=== PATIENT | male | born 1950 | race Caucasian/White ===

== ENCOUNTER 2024-02-09 14:31 | Emergency (ER) | payer OTHER, SELFPAY ==
[2024-02-09 14:36] VITALS: BP 150/86
[2024-02-09 15:02] LABS: % Basophils 0.5 % (0-2); % Eosinophils 0.1 % (0-6); % Immature Granulocytes 0.5 % (0-0.5); % Lymphocytes 6.6 % (20.5-51.1); % Monocytes 4.7 % (1.7-9.3); % Neutrophils 87.6 % (42.2-75.2); Absolute Basophils 0.1 10^3/uL (0-0.2); Absolute Immature Granulocytes 0.1 10^3/uL (0-0.05); Absolute Lymphocytes 1.1 10^3/uL (1.2-3.4); Absolute Monocytes 0.7 10^3/uL (0.1-0.6); Absolute Neutrophils 13.9 10^3/uL (1.4-6.5); Hematocrit 40.7 % (39.0-52.0); Hemoglobin 13.3 g/dL (13.0-18.0); Mean Corp Hgb Conc. 32.7 g/dL (33.0-37.0); Mean Corpuscular Hgb 30.1 pg (27.0-31.0); Mean Corpuscular Volume 92.1 fL (80.0-94.0); Mean Platelet Volume 9.6 fL (7.4-10.4); Nucleated Red Blood Cells % 0 % (-); Platelet Count 420 10^3/uL (130-400); Red Blood Cell Count 4.42 10^6/uL (4.70-6.10); Red Cell Dist. Width 12.4 % (11.5-14.5); White Blood Cell Count 15.9 10^3/uL (4.8-10.8)
[2024-02-09 15:13] LABS: Urine Albumin Negative (Neg - Trace); Urine Bilirubin Negative (Negative); Urine Character Clear (Clear); Urine Color Yellow; Urine Glucose Negative (Negative); Urine Ketone Trace (Negative); Urine Leukocyte 1+ (Negative); Urine Nitrite Negative (Negative); Urine Occult Blood 1+ (Negative); Urine Urobilinogen Negative (Neg - 1+)
[2024-02-09 15:14] LABS: ALT (SGPT) 23 U/L (0-50); AST (SGOT) 28 U/L (17-59); Alkaline Phosphatase 94 U/L (38-126); Blood Urea Nitrogen 21 mg/dl (9-20); Calcium 9.4 mg/dl (8.4-10.2); Carbon Dioxide 24 mmol/L (22-30); Chloride 103 mmol/L (98-107); Glucose 143 mg/dl (70-99); Potassium 4.6 mmol/L (3.5-5.1); Sodium 137 mmol/L (135-145); Total Bilirubin 0.5 mg/dl (0.2-1.3); Total Protein 7.4 g/dl (6.3-8.2); eGFR > 60.00
[2024-02-09 15:32] VITALS: BMI 26.6
[2024-02-09] MEDS: TORADOL 15 MG IV (15:33)
[2024-02-09 17:26] VITALS: BP 137/82
--- NOTE | 2024-02-09 18:25 | ED.GENMED ---
History of Present Illness
General
Chief Complaint: Flank Pain
Source: patient
Exam Limitations: none
Time Seen by Provider: 02/09/24 15:08
Nursing documentation reviewed up to this point in time: agreed with
Travel History
Have you had any contact with someone who has COVID-19?: No
Do you have any symptoms of coronavirus? Fever > 100 degrees, chills, cough, shortness of breath, sore throat, loss of taste or smell, muscle aches, or headache?: No
History of Present Illness
History of Present Illness:
Patient to ED with complaint of left flank pain. Symptoms started today. History of kidney stones [place] episode approx 4 yrs ago. To ED accompanied by spouse for kobi.
Past History
Past History
ED Past Medical History: Other (kisney stones)
Social History
Tobacco: Non-smoker
Review of Systems
Review of Systems
Allergies reviewed?: Yes
All Other Systems: ROS reviewed and negative except as documented in HPI and ROS
Constitutional: Reports no symptoms
EENT: Reports no symptoms
Respiratory: Reports no symptoms
Cardiac: Reports no symptoms
ABD/GI: Reports no symptoms
: Reports flank pain
Musculoskeletal: Reports no symptoms
Skin: Reports no symptoms
Neurological: Reports no symptoms
Psychiatric: Reports no symptoms
Phy Exam
General Physical Exam
General Presentation: well appearing and mild distress
General age: appears stated age
General Skin: warm and dry
General Habitus: normal
General Mental: alert
Gastrointestinal Exam
Gastrointestinal Exam: normal bowel sounds, non tender, soft, no organomegaly and non distended
Musculoskeletal Exam
Musculoskeletal Exam: full ROM and neuro vasc intact
Skin Exam
Skin Exam: normal color, warm/dry and no rash
Psychiatric Exam
Psychiatric Exam: normal mood/affect
Course
Orders/Labs/Results
Orders:
Orders
02/09/24 14:48
Complete Blood Count/With Diff Urgent
Comprehensive Metabolic Panel Urgent
02/09/24 14:52
Urinalysis Reflex To Culture Urgent
Date Specimen was Collected: 02/09/24
Time Specimen was Collected: 14:38
Urine Microscopic Reflex Cult Urgent
Urine Culture Urgent
STEFANY Source: U
Specimen Description:
Date Specimen was Collected: 02/09/24
Time Specimen was Collected: 14:38
02/09/24 15:11
CT Abd/pel Without Iv Or Oral Urgent
Comment:
Reason For Exam: flank pain
02/09/24 15:15
Ketorolac [Toradol] 15 mg IV NOW STA
Abnormal Lab Results
02/09/24 02/09/24
14:48 14:52
WBC 15.9 H 10^3/uL
(4.8-10.8)
RBC 4.42 L 10^6/uL
(4.70-6.10)
MCHC 32.7 L g/dL
(33.0-37.0)
Plt Count 420 H 10^3/uL
(130-400)
Abs Immat Gran (auto) 0.1 H 10^3/uL
(0-0.05)
Absolute Neuts (auto) 13.9 H 10^3/uL
(1.4-6.5)
Absolute Lymphs (auto) 1.1 L 10^3/uL
(1.2-3.4)
Absolute Monos (auto) 0.7 H 10^3/uL
(0.1-0.6)
Neutrophils % 87.6 H %
(42.2-75.2)
Lymphocytes % 6.6 L %
(20.5-51.1)
BUN 21 H mg/dl
(9-20)
Glucose 143 H mg/dl
(70-99)
Urine Ketones Trace A
(Negative)
Ur Occult Blood Reflex 1+ A
(Negative)
Leukocyte Esterase Rfl 1+ A
(Negative)
Urine RBC 3-6 A /HPF
(0-2)
02/09/24 14:48
02/09/24 14:48
Vital Signs
Initial and Last Documented VS:
Initial Vital Signs
Temp Pulse Resp BP Pulse Ox
97.7 F 66 16 150/86 100
02/09/24 14:36 02/09/24 14:36 02/09/24 14:36 02/09/24 14:36 02/09/24 14:36
Last Documented Vital Signs
Temp Pulse Resp BP Pulse Ox
97.7 F 73 14 137/82 98
02/09/24 14:36 02/09/24 17:26 02/09/24 17:26 02/09/24 17:26 02/09/24 17:26
*Radiology
Radiology exam reviewed: radiology read reviewed
*Pulse Oximetry
Patient hypoxic: no
*Critical Care Note
Total Time (30-74mins, 75-104mins- exclusive of procedures): Not Applicable
Update Note
Update Note:
Patient now pain free. Ct report of stone passing into bladder. Patient is discharged home and will strain urine, followup with urology
ED Attending Note
-
Portions of this chart may have been created with voice recognition software.� Occasional wrong word or��sound alike� substitutions may have occurred due to the inherent limitations of voice recognition software.
Discharge Plan
Departure
Patient Disposition: Home (Routine Discharge)
Date of Disposition: 02/09/24
Time of Disposition: 17:33
Patient with high blood pressure during this ER visit?: No
Condition: Good
Covid-19: Not Applicable
Discharge Problem:
Kidney stone
Instructions: Kidney Stones (DC), Flank Pain (DC)
Prescriptions:
No Action
atenolol 50 MG tablet
50 mg PO DAILY
Referrals:
Anurag Solis MD [Active] - Next open appointment
Ryanne Victoria MD [Family Provider] -
Interventions
Interventions:
*Risk Screen - Suicide Last Done: 02/09/24 15:32
*General Assessment Last Done: 02/09/24 15:32
*Neglect/Abuse Screening Last Done: 02/09/24 15:32
*ED COVID-19 Vaccine History Last Done: 02/09/24 15:32
*Nursing Disposition Last Done: 02/09/24 18:09
QG-Oihien-Vxuwhmqwdi Assessment Last Done: 02/09/24 15:32
ED-Male Genitourinary Assessment Last Done: 02/09/24 15:32
Discharge Date and Time
Discharge Date/Time: 02/09/24 18:10
Print Language: BURKINAN
== END 2024-02-09 18:10 | disposition home or self-care (01) ==
LOC: EMR 14:31
PROVIDERS: Emergency Medicine; EMERGENCY PHYSICIAN Emergency Medicine; FAMILY PHYSICIAN Family Medicine
DX: N13.2 Hydronephrosis with renal and ureteral calculous obstruction (principal)
CPT/HCPCS: 99284; 96374; 74176; 80053; 81003; 81015; 85025; 87086

== ENCOUNTER → 2024-06-23 09:48 | Outpatient (REF) | payer OTHER, SELFPAY | LOC: HWRAD 09:48 | PROVIDERS: ATTENDING PHYSICIAN Family Medicine | DX: M89.371 Hypertrophy of bone, right ankle and foot (principal); M89.372 Hypertrophy of bone, left ankle and foot | CPT/HCPCS: 73630 ==

== ENCOUNTER 2024-06-25 22:40 | Inpatient (IN) | payer OTHER, SELFPAY ==
[2024-06-25] VITALS (8 sets, daily range): BP systolic 133–144; BP diastolic 68–89; BMI 27.4
[2024-06-25 19:20] LABS: % Basophils 0.4 % (0-2); % Immature Granulocytes 0.4 % (0-0.5); % Lymphocytes 5.7 % (20.5-51.1); % Monocytes 4.4 % (1.7-9.3); % Neutrophils 89.1 % (42.2-75.2); Absolute Basophils 0.1 10^3/uL (0-0.2); Absolute Immature Granulocytes 0.1 10^3/uL (0-0.05); Absolute Lymphocytes 0.7 10^3/uL (1.2-3.4); Absolute Monocytes 0.6 10^3/uL (0.1-0.6); Absolute Neutrophils 11.3 10^3/uL (1.4-6.5); Hematocrit 42.6 % (39.0-52.0); Hemoglobin 14.7 g/dL (13.0-18.0); Mean Corp Hgb Conc. 34.5 g/dL (33.0-37.0); Mean Corpuscular Hgb 30.1 pg (27.0-31.0); Mean Corpuscular Volume 87.3 fL (80.0-94.0); Mean Platelet Volume 9.6 fL (7.4-10.4); Nucleated Red Blood Cells % 0 % (-); Platelet Count 246 10^3/uL (130-400); Red Blood Cell Count 4.88 10^6/uL (4.70-6.10); White Blood Cell Count 12.7 10^3/uL (4.8-10.8)
--- NOTE | 2024-06-25 19:20 | ED.GENMED ---
History of Present Illness
General
Chief Complaint: Abdominal Pain
Source: patient
Exam Limitations: none
Time Seen by Provider: 06/25/24 19:02
History of Present Illness
History of Present Illness:
Patient complaining of left-sided flank pain started earlier today. Minimal at this time. No back pain no groin pain no urinary symptoms. History of kidney stones. Feels similar. Last kidney stone was earlier in the year and he passed it on his
own. His previous kidney stones have had to be removed surgically/lithotripsy.
Past History
Past History
ED Past Medical History: HTN and Other (kidney stones)
ED Past Surgical History: Urological
Social History
Tobacco: Former smoker
Review of Systems
Review of Systems
All Other Systems: Not applicable
Constitutional: Denies fever or chills
Phy Exam
Physical Exam
Physical Exam:
GENERAL: Alert and oriented in no apparent distress
EYE: Orbits normal.
NECK: Supple
CARDIAC: Regular rate and rhythm without any obvious murmurs.
LUNGS: Clear breath sounds,normal
ABDOMEN: Soft, without focal tenderness or distention. No CVA tenderness
NEUROLOGICAL: Alert and oriented , grossly non-focal
SKIN: Warm and dry
PSYCH: Normal and appropriate interaction.
Course
Orders/Labs/Results
Orders:
Orders
06/25/24 Breakfast
Regular
At Your Request: Full Participation
06/25/24 19:08
CT Abd/pel Without Iv Or Oral Urgent
Comment:
Reason For Exam: Left flank pain
IV Insert/Care/Rem.- Treatment PRN
Pulse Ox/cont/shift [RESP] Stat
Quantity: 1
06/25/24 19:14
Complete Blood Count/With Diff Urgent
Comprehensive Metabolic Panel Urgent
Lipase Urgent
Urinalysis Reflex To Culture Urgent
Date Specimen was Collected: 06/25/24
Time Specimen was Collected: 19:12
Urine Microscopic Reflex Cult Urgent
Urine Culture Urgent
STEFANY Source: U
Specimen Description:
Date Specimen was Collected: 06/25/24
Time Specimen was Collected: 19:12
06/25/24 21:26
Cefepime HCl [Maxipime] 2,000 mg IV NOW STA
06/25/24 21:28
Blood Culture Routine
STEFANY Source: Blood/Venous
Specimen Description:
Blood Culture Urgent
STEFANY Source: Blood/Venous
Specimen Description:
06/25/24 22:01
Admit/Transfer Patient As Directed
Co-Sign Provider:
Level of Care: Inpatient admission
Assign to:: Medical/Surgical
Physician / Group: Ranulfo
Diagnosis: Ureteral Stone
Reason for Hospitalization: Ureteral Stone
Expected length of stay greater than two midnights?: Yes
ELOS- Estimated Length of Stay in days: 2
I certify the patient meets the requirements for IP care: Yes
PRN Pain Medication Management As Directed
May give lesser potent ordered pain med per pt: Yes
preference::
Protocol:: Medication orders for pain may be administered in a
manner that supports deferring to patient preference
when the pt is:
- Requesting an ordered lesser potent pain medication.
Least to most potent pain medications are defined
as: acetaminophen < NSAID < tramadol < opioids
(morphine, oxycodone, hydromorphone).
- Requesting a lesser dose of the same medication IF
ORDERED.
- Requesting a less intrusive route of administration
if both routes are prescribed by the provider (PO <
IV).
06/25/24 22:02
Code Status As Directed
Resuscitation Status: Full Code
06/25/24 23:13
0.9% Sodium Chloride 1000 ml [Nss] 1,000 ml IV 125 mls/hr
Acetaminophen [Tylenol] 650 mg PO Q4HPRN PRN
HYDROmorphone [Dilaudid] 0.5 mg IV Q4HPRN PRN
Ketorolac [Toradol] 15 mg IV Q6HPRN PRN
Ondansetron Injectable [Zofran] 4 mg IV Q6HPRN PRN
06/25/24 23:13
UROLOGY CONSULT Routine
Consulting Provider: Ulises Dorado
Was physician already notified: Yes
Comment: Ureteral Stones
Activity As Directed
Activity Level: Ambulate
I/O [Intake/ Output] As Directed
Frequency: Per unit guidelines
Pneumatic Compression Sleeves As Directed
Type: Knee high
Strain Urine As Directed
Vital Signs As Directed
Frequency: Per unit guidelines
DX Deep Vein Thrombosis Video Routine
06/26/24 04:00
CefTRIAXone [Rocephin] 1,000 mg IV Q24H
06/26/24 05:18
Basic Metabolic Panel IN AM
Complete Blood Count/No Diff IN AM
06/26/24 Breakfast
NPO
Allow oral meds: Yes
Allow clear liquids: Sips of Clears
NPO for procedure after (time): Midnight
06/26/24 08:00
Atenolol [Tenormin] 50 mg PO DAILY
Tamsulosin [Flomax] 0.4 mg PO DAILY
Abnormal Lab Results
06/25/24
19:14
WBC 12.7 H 10^3/uL
(4.8-10.8)
Abs Immat Gran (auto) 0.1 H 10^3/uL
(0-0.05)
Absolute Neuts (auto) 11.3 H 10^3/uL
(1.4-6.5)
Absolute Lymphs (auto) 0.7 L 10^3/uL
(1.2-3.4)
Neutrophils % 89.1 H %
(42.2-75.2)
Lymphocytes % 5.7 L %
(20.5-51.1)
BUN 21 H mg/dl
(9-20)
Glucose 133 H mg/dl
(70-99)
Urine Ketones 1+ A
(Negative)
Ur Occult Blood Reflex 4+ A
(Negative)
Urine Nitrite (Reflex) Positive A
(Negative)
Leukocyte Esterase Rfl 2+ A
(Negative)
Urine RBC 11-15 A /HPF
(0-2)
Urine WBC (Reflex) 16-20 A /HPF
(0-5)
Urine Bacteria (Reflex) Many A
(Negative)
06/25/24 19:14
06/25/24 19:14
Vital Signs
Initial and Last Documented VS:
Initial Vital Signs
Temp Pulse Resp BP Pulse Ox
98.1 F 86 16 141/89 98
06/25/24 18:40 06/25/24 18:40 06/25/24 18:40 06/25/24 18:40 06/25/24 18:40
Last Documented Vital Signs
Temp Pulse Resp BP Pulse Ox
98.7 F 88 14 138/83 96
06/25/24 23:24 06/25/24 23:24 06/25/24 23:24 06/25/24 23:24 06/25/24 23:24
MDM/Problems Addressed
Differential Diagnosis Includes:
Relatively high suspicion for kidney stone. Diverticulitis is in the differential however has no abdominal tenderness. Workup in progress
*Pulse Oximetry
Patient hypoxic: no
*Critical Care Note
Total Time (30-74mins, 75-104mins- exclusive of procedures): Not Applicable
Data Reviewed
Review of Other/Old Records Reveals: Labs, Records and Radiology Studies
Update Note
Update Note:
Patient with obstructing stone x 2 left mid ureter. Urinalysis positive. Elevated white count. However clinically no infectious symptoms. Patient is allergic to penicillin is a rash as a child. He has had cephalosporins without issues.
Cefepime ordered. Urology contacted. Aware of CT findings and urine.
Discussed with urology. N.p.o. after midnight. Antibiotics. Hospitalist admission
ED Attending Note
-
Portions of this chart may have been created with voice recognition software.� Occasional wrong word or��sound alike� substitutions may have occurred due to the inherent limitations of voice recognition software.
Discharge Plan
Departure
Patient Disposition: Admit
Date of Disposition: 06/25/24
Time of Disposition: 21:34
Presentation/result/management discussed w/ accepting MD/DO: Peffer
Discharge Problem:
Mid ureteral obstructing kidney stone, UTI
Interventions
Interventions:
*Risk Screen - Suicide Last Done: 06/25/24 18:40
*General Assessment Last Done: 06/25/24 19:03
*Neglect/Abuse Screening Last Done: 06/25/24 18:40
ED- Fall Risk Assessment Last Done: 06/25/24 19:03
*ED COVID-19 Vaccine History Last Done: 06/25/24 18:40
*Nursing Disposition Last Done: 06/25/24 23:08
JE-Hxhtkv-Egwcgwnzfv Assessment Last Done: 06/25/24 19:03
Discharge Date and Time
Discharge Date/Time: 06/25/24 23:10
[2024-06-25 19:33] LABS: Urine Albumin Trace (Neg - Trace); Urine Bilirubin Negative (Negative); Urine Character Slightly Cloudy (Clear); Urine Color Yellow; Urine Glucose Negative (Negative); Urine Ketone 1+ (Negative); Urine Leukocyte 2+ (Negative); Urine Nitrite Positive (Negative); Urine Occult Blood 4+ (Negative); Urine Urobilinogen Negative (Neg - 1+)
[2024-06-25 19:41] LABS: ALT (SGPT) 25 U/L (0-50); AST (SGOT) 39 U/L (17-59); Albumin 4.7 g/dl (3.5-5.0); Alkaline Phosphatase 82 U/L (38-126); Blood Urea Nitrogen 21 mg/dl (9-20); Calcium 9.7 mg/dl (8.4-10.2); Carbon Dioxide 22 mmol/L (22-30); Chloride 102 mmol/L (98-107); Glucose 133 mg/dl (70-99); Lipase 240 U/L (23-300); Potassium 4.2 mmol/L (3.5-5.1); Sodium 140 mmol/L (135-145); Total Bilirubin 0.9 mg/dl (0.2-1.3); Total Protein 7.6 g/dl (6.3-8.2); eGFR > 60.00
[2024-06-25 19:55] LABS: Urine Calcium Oxalate Crystals Present
[2024-06-25 19:56] LABS: Urine Bacteria Many (Negative); Urine White Cell 16-20 /HPF (0-5)
[2024-06-25] MEDS: MAXIPIME 2000 MG IV (21:32)
--- NOTE | 2024-06-25 22:05 | HPS.HSE ---
Family Physician
-
Family Physician: Ryanne Victoria MD
Chief Complaint
-
Flank Pain
History of Present Illness
Patient is a 73y M with PMH significant for hypertension and kidney stones who presents to ED complaining of L flank pain x 24 hours. Patient has a prior history of kidney stone - previously requiring lithotripsy and stent placement (08/2020).
Most recent stone was in January of this year - which he passed spontaneously. He has no associated symptoms of fevers / chills, N/V/D, dysuria or hematuria.
Medical History
Past Medical History
Past Medical History: Reports Other
Additional Past Medical History:
Hypertension
Nephrolithiasis
Past Surgical History: Reports Other
Additional Past Surgical History:
Lithotripsy
Ureteral Stents
Appendectomy
Cataracts
Social History
Tobacco: Non-smoker
Alcohol: Occasional
Drug: None
Personal:
Living: With Family
Family History
Family History: Not pertinent
Allergies / Home Medications
Allergies reflects when Allergies were last updated in [employer].
Home Medications with original date entered in [employer]
Allergy/Medication List:
Allergies
Allergy/AdvReac Type Severity Reaction Status Date / Time
Penicillins Allergy Unknown Verified 02/09/24 14:35
IV CONTRAST Allergy VOICE Uncoded 02/09/24 14:35
CHANGE,
THROAT
IRRIATION
Home Medications
atenolol 50 mg tablet 50 mg PO DAILY Blood pressure 06/29/20
rosuvastatin 10 mg tablet 10 mg PO DAILY 06/25/24
therapeutic multivitamin 1 tab PO DAILY 06/25/24
Review of Systems
-
History Source: Patient
A 12 point ROS was completed and negative except as noted: Yes
Constitutional: Denies Fever or Chills
EENT: Denies Sore Throat
Respiratory: Denies Cough or Trouble Breathing
Cardiac: Denies Chest Pain or Palpitations
Abdomen/GI: Reports Abdominal Pain; Denies Nausea or Vomiting
: Reports Flank Pain; Denies Dysuria or Bleeding
Neurological: Denies Dizzy or Headache
Physical Exam
Vital Signs
Vital Signs
Temp Pulse Resp BP Pulse Ox
98.1 F 81 19 137/69 96
06/25/24 18:40 06/25/24 21:37 06/25/24 21:37 06/25/24 21:00 06/25/24 21:37
Physical Exam
General: Other (73y M in no acute distress.)
HEENT: Moist mucous membranes
Respiratory: Clear; No Wheezes, Rales or Rhonchi
Cardiac: S1/S2, Regular Rhythm and Murmur (II/ ELHAM)
GI: Soft, Non Distended, Normal Bowel Sounds and Other (Mild tenderness far lateral L abdomen. No rebound / guarding.)
Genito-urinary: No costovertebral tender
Musculoskeletal: No Clubbing, No Cyanosis and No Edema
Neuro: AO x 3
Laboratory Results
-
06/25/24 19:14
06/25/24 19:14
Laboratory Results
Total Bilirubin 0.9 mg/dl (0.2-1.3) 06/25/24 19:14
AST 39 U/L (17-59) 06/25/24 19:14
ALT 25 U/L (0-50) 06/25/24 19:14
Alkaline Phosphatase 82 U/L (38-126) 06/25/24 19:14
Lipase 240 U/L (23-300) 06/25/24 19:14
Impression/Plan
-
A/P: Patient is a 73y M with PMH significant for HTN and prior kidney stones who presents to ED complaining of left flank pain x 24 hours.
Left Ureteral Stones
- Admit for further evaluation and treatment.
- NPO after midnight.
- Tamsulosin, strain urine, IVFs overnight.
- Urology consulted for intervention if needed.
- Supportive care with pain control if necessary.
Possible UTI
- UA potentially consistent with UTI - or with stone passage.
- Afebrile, non-toxic appearing.
- Will continue with ceftriaxone for now pending culture data and stone removal.
Benign Hypertension
- Stable. Continue atenolol with holding parameters.
DVT Prophylaxis: SCDs
Code Status: Full
--- NOTE | 2024-06-25 23:15 | PTCARENOTE ---
New admit to 2S via ED @6014. Pt. able to walk with steady gait from stretcher to room bed without assistive devices, A&Ox3, in NAD, even and unlabored breathing on RA, denies pain at present, and VSS. Pt. oriented to room and unit policies, bed
locked and in lowest position, side rails in place, and call light within reach.
[2024-06-25] MEDS: NSS 1000 IV (23:41)
[2024-06-26] VITALS (8 sets, daily range): BP systolic 105–139; BP diastolic 67–79
[2024-06-26] MEDS: STERILE WATER FOR INJECTION 10 ML IV (03:37)
[2024-06-26] MEDS: ROCEPHIN 1000 MG IV (03:37)
[2024-06-26 06:28] LABS: Blood Urea Nitrogen 16 mg/dl (9-20); Calcium 8.8 mg/dl (8.4-10.2); Carbon Dioxide 23 mmol/L (22-30); Chloride 109 mmol/L (98-107); Estimated Creatinine Clearance 74 ml/min; Glucose 87 mg/dl (70-99); Sodium 143 mmol/L (135-145); eGFR > 60.00
[2024-06-26 06:29] LABS: Hematocrit 37.8 % (39.0-52.0); Hemoglobin 12.8 g/dL (13.0-18.0); Mean Corp Hgb Conc. 33.9 g/dL (33.0-37.0); Mean Corpuscular Hgb 29.9 pg (27.0-31.0); Mean Corpuscular Volume 88.3 fL (80.0-94.0); Mean Platelet Volume 10.2 fL (7.4-10.4); Platelet Count 205 10^3/uL (130-400); Red Blood Cell Count 4.28 10^6/uL (4.70-6.10); Red Cell Dist. Width 13.1 % (11.5-14.5); White Blood Cell Count 8.9 10^3/uL (4.8-10.8)
--- NOTE | 2024-06-26 07:31 | W.PN.HOSP.TC ---
Today's Communication/Plan
-
NPO for ureteral stent with urology
IVF support
pain control
cont abx
Assessment / Plan
Assessment / Plan
Physical Exam
General: no acute distress appears comfortable at this time
HEENT: Moist mucous membranes
Respiratory: Clear; No Wheezes, Rales or Rhonchi
Cardiac: S1/S2, Regular Rhythm and Murmur (II/ ELHAM)
GI: Soft, Non Distended, Normal Bowel Sounds, Nontender
Genito-urinary: No costovertebral tender
Musculoskeletal: No Clubbing, No Cyanosis and No Edema
Neuro: AO x 3
A/P: Patient is a 73y M with PMH significant for HTN and prior kidney stones who presents to ED complaining of left flank pain x 24 hours.
Left Ureteral Stones
- Tamsulosin, strain urine, IVFs support
- Urology consult appreciated NPO for ureteral stent
- Pain control
Possible UTI
- UA potentially consistent with UTI - or with stone passage.
- Afebrile, non-toxic appearing.
- continue ceftriaxone for now pending culture data
Hypertension
- Stable. Continue atenolol with holding parameters.
DVT Prophylaxis: SCDs
Code Status: Full
I spent a total of 40 minutes with the patient or on the floor. More than 50% of this time involved counseling and coordination of care.
Anticipated Discharge: Within 24 hours
Subjective/Interval History
-
Date of Service: June 26, 2024
No acute distress. Overall reports feeling well. Denies new acute issues at this time. Denies dysuria, flank pain.
Objective Data
-
Labs:
Laboratory Results
06/25/24 06/26/24
19:14 05:18
WBC 8.9
Hgb 12.8 L
Hct 37.8 L
Plt Count 205
Sodium 140 143
Potassium 4.2 4.0
Chloride 102 109 H
Carbon Dioxide 22 23
BUN 21 H 16
Creatinine 1.0 0.9
Glucose 133 H 87
Calcium 9.7 8.8
Total Bilirubin 0.9
AST 39
ALT 25
Alkaline Phosphatase 82
Vital Signs:
Vital Signs
Temp Pulse Resp BP Pulse Ox
98.7 F 88 14 138/83 96
06/25/24 23:24 06/25/24 23:24 06/25/24 23:24 06/25/24 23:24 06/25/24 23:24
I&O
06/25/24 06/26/24 06/27/24
06:59 06:59 06:59
Output Total 850 / 850
Balance -850 / -850
[2024-06-26] MEDS: TENORMIN 50 MG PO (08:54)
[2024-06-26] MEDS: NSS 1000 IV ×2 (08:54→23:26)
[2024-06-26] MEDS: FLOMAX 0.4 MG PO (08:54)
--- NOTE | 2024-06-26 13:58 | W.SUR.PREOP ---
Pre-Operative Surgical Note
-
I have examined this patient prior to the performance of the scheduled procedure.
The patient's condition is unchanged from the time of the current History and
Physical and the patient is able to undergo the scheduled procedure.
CT reviewed => obstructing mid left ureteral stones x2 (~5 mm each) w/ associated hydroureteronephrosis and perinephric stranding of left kidney.
UA +nitrites/WBCs.
UCx pending.
- To OR for cysto + left stent placement
- Surgical consent signed in preop
- Left laterality marked
- IV Ceftriaxone 1g q24hrs
--- NOTE | 2024-06-26 15:29 | W.IMMPOSTOP ---
Surgical Immed Post Op Note
-
Primary Surgeon: Karen
Pre-op Diagnosis: cUTI, obstructing left ureteral stones x2
Post-op Diagnosis: Same
Procedure Performed: cysto, left RGP, left stent placement
Anesthesia Type: LMA
Specimen / Cultures: None/None
Estimated Blood Loss: Negligible
Drains: 4.7Fr x 24 cm JJ left ureteral stent
Complications: None
Operative Findings: Cloudy urine output from left UO after wire decompression of obstruction, final KUB + cysto confirming appropriate stent position.
[2024-06-26] MEDS: DETROL LA 4 MG PO (15:35)
[2024-06-26] MEDS: Pyridium 200 MG PO (15:35)
--- NOTE | 2024-06-26 17:41 | PTCARENOTE ---
Received patient from PACU around 1600 via bed in stable condition. Patient DTV. Denied pain. Call hernandez in reach.
[2024-06-26] MEDS: NSS IV (19:00)
[2024-06-27 03:02] VITALS: BP 125/77
[2024-06-27] MEDS: STERILE WATER FOR INJECTION 10 ML IV (04:12)
[2024-06-27] MEDS: ROCEPHIN 1000 MG IV (04:12)
[2024-06-27 06:00] LABS: Hematocrit 36.9 % (39.0-52.0); Hemoglobin 12.6 g/dL (13.0-18.0); Mean Corp Hgb Conc. 34.1 g/dL (33.0-37.0); Mean Corpuscular Hgb 30.9 pg (27.0-31.0); Mean Corpuscular Volume 90.4 fL (80.0-94.0); Platelet Count 189 10^3/uL (130-400); Red Blood Cell Count 4.08 10^6/uL (4.70-6.10); Red Cell Dist. Width 12.9 % (11.5-14.5); White Blood Cell Count 8.6 10^3/uL (4.8-10.8)
--- NOTE | 2024-06-27 06:01 | W.PN.URO.CBU ---
Today's Communication / Plan
-
home on abx
will return as an outpt for definitive stone tx
Assessment / Plan
-
stable
Diagnosis
-
Date of Service: June 27, 2024
-
Patient Diagnosis: ureteral stone + infection s/p ureteral stenting 06/26
Post Op Day: 1
Subjective
-
asleep
Objective
-
Vital Signs
Temp Pulse Resp BP Pulse Ox
97.8 F 67 16 125/77 97
06/27/24 03:02 06/27/24 03:02 06/27/24 03:02 06/27/24 03:02 06/27/24 03:02
Intake and Output
06/25/24 06/26/24 06/27/24
06:59 06:59 06:59
Intake Total 3890 / 3890
Output Total 850 / 850 1900 / 1900
Balance -850 / -850 1989 / 1989
Intake:
Oral fluids 1440 / 1440
IV fluids (Total) 2450 / 2450
Output:
Urine, Voided 850 / 850 1900 / 1900
Laboratory Results
06/27/24 05:30
urine cx: pending
Physical Exam
-
General - asleep
[2024-06-27 06:21] LABS: Blood Urea Nitrogen 15 mg/dl (9-20); Calcium 8.8 mg/dl (8.4-10.2); Carbon Dioxide 22 mmol/L (22-30); Chloride 108 mmol/L (98-107); Estimated Creatinine Clearance 83 ml/min; Glucose 103 mg/dl (70-99); Magnesium 1.9 mg/dl (1.6-2.3); Phosphorus 3.7 mg/dl (2.5-4.5); Potassium 4.6 mmol/L (3.5-5.1); Sodium 142 mmol/L (135-145); eGFR > 60.00
--- NOTE | 2024-06-27 07:37 | W.PN.HOSP.TC ---
Today's Communication/Plan
-
discharge
Assessment / Plan
Assessment / Plan
Physical Exam
General: no acute distress appears comfortable at this time
HEENT: Moist mucous membranes
Respiratory: Clear; No Wheezes, Rales or Rhonchi
Cardiac: S1/S2, Regular Rhythm and Murmur (II/ ELHAM)
GI: Soft, Non Distended, Normal Bowel Sounds, Nontender
Genito-urinary: No costovertebral tender
Musculoskeletal: No Clubbing, No Cyanosis and No Edema
Neuro: AO x 3
A/P: Patient is a 73y M with PMH significant for HTN and prior kidney stones who presents to ED complaining of left flank pain x 24 hours.
Left Ureteral Stones
- Tamsulosin, strain urine
- Urology consult appreciated s/p Left ureteral stent 06/26 outpt follow up for stone removal recommended
- Pain control
Possible UTI
- UA potentially consistent with UTI - or with stone passage.
- Afebrile, non-toxic appearing, asymptomatic at this time, denies flank pain dysuria
-completed 2 days Ceftriaxone, switching to Keflex starting tomorrow for 5 more days
Hypertension
- Stable. Continue atenolol with holding parameters.
DVT Prophylaxis: SCDs
Code Status: Full
Medically stable for discharge home with outpatient follow up recommendations
Total Time Preparing Discharge ___40____ minutes including examination of the patient, summary of the hospital stay, instructions for continuing care to all relevant caregivers; and preparation of discharge records, prescriptions, and referral
forms if necessary.
Anticipated Discharge: Today
Subjective/Interval History
-
Date of Service: June 27, 2024
Seen and examined at bedside in no acute distress sitting up comfortably in bed. Overall reports feeling well. Denies pain/dysuria. Eager to go home.
Objective Data
-
Labs:
Laboratory Results
06/27/24
05:30
WBC 8.6
Hgb 12.6 L
Hct 36.9 L
Plt Count 189
Sodium 142
Potassium 4.6
Chloride 108 H
Carbon Dioxide 22
BUN 15
Creatinine 0.8
Glucose 103 H
Calcium 8.8
Vital Signs:
Vital Signs
Temp Pulse Resp BP Pulse Ox
97.8 F 67 16 125/77 97
06/27/24 03:02 06/27/24 03:02 06/27/24 03:02 06/27/24 03:02 06/27/24 03:02
I&O
06/26/24 06/27/24 06/28/24
06:59 06:59 06:59
Intake Total 3890 / 3890
Output Total 850 / 850 190 / 190
Balance -850 / -850 1989 / 1989
[2024-06-27 07:54] VITALS: BP 142/82
[2024-06-27] MEDS: TENORMIN 50 MG PO (08:21)
[2024-06-27] MEDS: FLOMAX 0.4 MG PO (08:22)
--- NOTE | 2024-06-27 09:49 | W.DCSUMMARY ---
Discharge Summary
Discharge Data
Date of Admission: 06/25/24
Date of Discharge: 06/27/24
-
Pending Results: Yes
Additional Pending Results:
urine culture
Discharge Plan
-
Patient Disposition: Home (Routine Discharge)
Discharge Diagnosis/Procedures: obstructing left ureteral stones and complicated Urinary Tract Infection status post left stent placement 06/26/24
Enlarged Prostate Gland
Condition: Good
Diet: Regular
Activity: No restrictions
Driving Restrictions: As prior to admission
Bathing Restrictions: None
Activity Restrictions/Additional Instructions:
Please follow up with primary care provider in 1 week of discharge and Urology in 1-2 weeks of discharge.
Keflex (cephalexin) has been prescribed for 5 more days to complete treatment urinary tract infection. Start morning of 06/28/24
Flomax (Tamsulosin) has been prescribed to assist in the passage of kidney stones and for enlarged prostate, to prevent urinary retention.
Please take medications as prescribed/recommended and follow up with primary care provider, urology, and/or other healthcare provider involved in your care for refills and/or further adjustment to your medication regimen as necessary.
Referrals:
Anurag Solis MD [Active] - in one to two weeks (Please call the office to make a preop visit with Dr. Solis within 1-2 weeks to discuss/schedule your outpatient kidney stone surgery.)
Ryanne Victoria MD [Family Provider] - in one week
Prescriptions:
New
tamsulosin 0.4 mg Capsule
0.4 mg PO HS 30 Days Qty: 30 0RF
Rx Instructions:
Next dose 06/28/24 bedtime
cephalexin 500 mg tablet
500 mg PO BID 5 Days Qty: 10 0RF
Rx Instructions:
Start Morning 06/28/24
Continued
atenolol 50 MG tablet
50 mg PO DAILY
therapeutic multivitamin Tablet
1 tab PO DAILY
rosuvastatin 10 mg Tablet
10 mg PO DAILY
Discharge Orders:
Discharge Patient (As Directed); Ordered 06/27/24
Ordered By: Yael Mejias
Discharge Date and Time
Print Language: SWEDISH
--- NOTE | 2024-06-27 10:29 | CM ---
Met with pt and his at bedside
Pt reports he lives with his in a 2 story home; 1 step to enter,14 steps to 2nd fl
Retired, active, driving
DME - none
SNF/HH - denies past hx
Has ride at discharge
PCP - Ryanne Reynolds
Pharm - [facility]
Discussed IMM
Plan - home no needs
[2024-06-27 11:43] VITALS: BP 131/73
[2024-06-27 11:58] VITALS: BP 131/73
== END 2024-06-27 12:30 | disposition home or self-care (01) | DRG 660 ==
LOC: 2 SOUTH 22:40
PROVIDERS: Surgery; ADMITTING PHYSICIAN Hospitalist; ATTENDING PHYSICIAN Internal Medicine; EMERGENCY PHYSICIAN Emergency Medicine; FAMILY PHYSICIAN Family Medicine
PROC: 0T778DZ Dilation of Left Ureter with Intraluminal Device, Via Natural or Artificial Opening Endoscopic (ICD-10-PCS; 2024-06-26)
DX: N20.2 Calculus of kidney with calculus of ureter (principal); N13.6 Pyonephrosis; Z87.891 Personal history of nicotine dependence; I10 Essential (primary) hypertension; N40.0 Benign prostatic hyperplasia without lower urinary tract symptoms
CPT/HCPCS: 74176; 74420; 76000; 80048; 80053; 81003; 81015; 83690; 83735; 84100; 85025; 85027; 87040; 87086; 87147; 87186; 93005; 96374; 99285; C2617

== ENCOUNTER 2024-07-30 06:18 | Day surgery (SDC) | payer OTHER, SELFPAY ==
[2024-07-30] VITALS (8 sets, daily range): BP systolic 117–146; BP diastolic 67–82; BMI 26.9
== END 2024-07-30 10:47 | disposition home or self-care (01) ==
LOC: SDS 06:18
PROVIDERS: ATTENDING PHYSICIAN Specialist
DX: N20.1 Calculus of ureter (principal); Z87.442 Personal history of urinary calculi; Z87.440 Personal history of urinary (tract) infections
CPT/HCPCS: 52356; 74018; 76000; A4300; C1894; C2617; J1580

== ENCOUNTER → 2025-02-19 08:02 | Outpatient (REF) | payer OTHER, SELFPAY | LOC: HWRAD 08:02 | PROVIDERS: ATTENDING PHYSICIAN Family Medicine | DX: M25.511 Pain in right shoulder (principal); M25.551 Pain in right hip | CPT/HCPCS: 73030; 73502 ==

== ENCOUNTER 2025-04-14 13:52 | Inpatient (IN) | payer OTHER, SELFPAY ==
[2025-04-14] VITALS (17 sets, daily range): BP systolic 101–142; BP diastolic 56–72; BMI 27.3
--- NOTE | 2025-04-14 09:12 | ED.GENMED ---
History of Present Illness
General
Chief Complaint: Flank Pain
Source: patient
Exam Limitations: none
Time Seen by Provider: 04/14/25 09:02
History of Present Illness
History of Present Illness:
74yoM with a history of hypertension, hyperlipidemia, remote history of lymphoma in 2009 in remission, and kidney stones presenting with his for evaluation of chills. Patient has been having intermittent right flank pain over the past 3 days
which feels similar to his prior kidney stones. He woke up this morning with shaking chills which lasted for a few hours. Patient is now feeling improved. He denies any active flank pain currently. He denies any URI symptoms, vomiting, dysuria,
hematuria, abdominal pain.
Past History
Past History
ED Past Medical History: HTN and Other (kidney stones)
ED Past Surgical History: Urological
Social History
Tobacco: Former smoker
Phy Exam
General Physical Exam
General Presentation: no apparent distress
General Skin: warm and dry
General Habitus: normal
General Mental: alert
ENT Exam
ENT Exam: normocephalic
Pulmonary Exam
Pulmonary Exam: lungs clear, no respiratory distress, no rales, no crackles, no rhonchi and no wheezing
Gastrointestinal Exam
Gastrointestinal Exam: non tender, soft, non distended and no cva tenderness
Neurological Exam
Neurological Exam: alert
Widen Coma Scale
Eye Opening: Spontaneous
Verbal Response: Oriented
Motor Response: Obeys Commands
GCS Total Score: 15
Skin Exam
Skin Exam: normal color and warm/dry
Psychiatric Exam
Psychiatric Exam: normal mood/affect
Sepsis
Sepsis Screening
Sepsis Assessment: Sepsis
Sepsis Screen
Sepsis Screen: Sepsis
Date: 04/14/25
Time: 14:30
Course
Orders/Labs/Results
Orders:
Orders
04/14/25 09:11
0.9% Sodium Chloride 1000 ml [Nss] 1,000 ml IV BOLUS
Acetaminophen [Tylenol] 1,000 mg PO NOW STA
04/14/25 09:12
CT Abd/pel Without Iv Or Oral Urgent
Comment:
Reason For Exam: R flank pain
04/14/25 09:49
Complete Blood Count/With Diff Urgent
Comprehensive Metabolic Panel Urgent
Lactate Level [Lactic Acid] Urgent
Urinalysis Reflex To Culture Urgent
Date Specimen was Collected: 04/14/25
Time Specimen was Collected: 09:22
Urine Microscopic Reflex Cult Urgent
Blood Culture Q30M
STEFANY Source: Blood/Venous
Specimen Description:
Urine Culture Urgent
STEFANY Source: U
Specimen Description:
Date Specimen was Collected: 04/14/25
Time Specimen was Collected: 09:22
04/14/25 10:32
CefTRIAXone [Rocephin] 2,000 mg IV NOW STA
04/14/25 10:45
UROLOGY CONSULT Urgent
Consulting Provider: Jose Arredondo Jr.
Was physician already notified: Yes
04/14/25 11:23
Blood Culture Q30M
STEFANY Source: Blood/Venous
Specimen Description:
04/14/25 12:00
0.9% Sodium Chloride 1000 ml [Nss] 1,000 ml IV 120 mls/hr
04/14/25 12:59
Dexamethasone Sod Phosphate [Decadron] 20 mg .ROUTE .STK-MED ONE
Fentanyl Citrate/Pf [Sublimaze] 100 mcg .ROUTE .STK-MED ONE
Lidocaine 2% Mpf [Xylocaine Mpf 2%] 100 mg .ROUTE .STK-MED ONE
Ondansetron Injectable [Zofran] 4 mg .ROUTE .STK-MED ONE
Propofol [Diprivan] 20 ml .ROUTE .STK-MED
04/14/25 13:00
Midazolam HCl [Versed] 2 mg .ROUTE .STK-MED ONE
04/14/25 13:32
Admit/Transfer Patient As Directed
Co-Sign Provider:
Level of Care: Inpatient admission
Assign to:: IMU- Intermediate Care
Physician / Group: Hospitalists
Diagnosis: Urosepsis
Reason for Hospitalization: Urosepsis
Expected length of stay greater than two midnights?: Yes
ELOS- Estimated Length of Stay in days: 4
I certify the patient meets the requirements for IP care: Yes
04/14/25 13:34
Phenylephrine HCl/0.9% NaCl [Brock-Synephrine] 1,000 mcg .ROUTE .STK-MED ONE
04/14/25 13:35
Code Status As Directed
Resuscitation Status: Full Code
Acetaminophen [Tylenol] 650 mg PO Q4HPRN PRN
Bisacodyl [Dulcolax] 10 mg RECTAL [id number] PRN
Docusate W/Senna [Senokot-S] 1 tablet PO BIDPRN PRN
Ondansetron Injectable [Zofran] 4 mg IV Q6HPRN PRN
Polyethylene Glycol Powder [Miralax] 17 grams PO DAILYPRN PRN
Tramadol HCl [Ultram] 50 mg PO Q6HPRN PRN
Activity As Directed
Activity Level: As Tolerated
Vital Signs As Directed
Frequency: Per unit guidelines
DX Deep Vein Thrombosis Video Routine
04/14/25 13:44
Ketorolac [Toradol] 30 mg .ROUTE .STK-MED ONE
04/14/25 14:22
Ibuprofen [Motrin] 400 mg PO Q8HPRN PRN mild pain
04/14/25 14:22
Sequential Compression Device [Pneumatic Compression Sleeves] As Directed
Type: Knee high
DX Deep Vein Thrombosis Video Routine
04/14/25 18:00
Enoxaparin Sodium [Lovenox] 40 mg SC QPM
04/15/25 Breakfast
Clear Liquid
At Your Request: Limited Participation
Basic Metabolic Panel IN AM
Complete Blood Count/No Diff IN AM
Magnesium IN AM
04/15/25 08:00
Atenolol [Tenormin] 50 mg PO DAILY
Famotidine [Pepcid] 20 mg PO DAILY
Multivitamin [Theragran] 1 tablet PO DAILY
04/16/25 06:00
Basic Metabolic Panel IN AM
Complete Blood Count/No Diff IN AM
04/17/25 06:00
Basic Metabolic Panel IN AM
Complete Blood Count/No Diff IN AM
Abnormal Lab Results
04/14/25
09:49
RBC 4.19 L 10^6/uL
(4.70-6.10)
Hgb 12.7 L g/dL
(13.0-18.0)
Hct 37.5 L %
(39.0-52.0)
Abs Immat Gran (auto) 0.1 H 10^3/uL
(0-0.05)
Absolute Neuts (auto) 8.6 H 10^3/uL
(1.4-6.5)
Absolute Lymphs (auto) 0.2 L 10^3/uL
(1.2-3.4)
Immature Gran % 0.7 H %
(0-0.5)
Neutrophils % 93.0 H %
(42.2-75.2)
Lymphocytes % 2.0 L %
(20.5-51.1)
Sodium 134 L mmol/L
(135-145)
BUN 34 H mg/dl
(9-20)
Creatinine 2.1 H mg/dL
(0.7-1.3)
Glucose 113 H mg/dl
(70-99)
Total Bilirubin 1.7 H mg/dl
(0.2-1.3)
Total Protein 6.1 L g/dl
(6.3-8.2)
Urine Ketones 2+ A
(Negative)
Ur Occult Blood Reflex 4+ A
(Negative)
Leukocyte Esterase Rfl 3+ A
(Negative)
Urine WBC (Reflex) >100 A /HPF
(0-5)
Urine Albumin (Reflex) 3+ A
(Neg - Trace)
04/14/25 09:49
04/14/25 09:49
Vital Signs
Initial and Last Documented VS:
Initial Vital Signs
Temp Pulse Resp BP Pulse Ox
102.9 F H 96 20 142/72 97
04/14/25 08:29 04/14/25 08:29 04/14/25 08:29 04/14/25 08:29 04/14/25 08:29
Last Documented Vital Signs
Temp Pulse Resp BP Pulse Ox
99.8 F 76 17 107/65 100
04/14/25 12:18 04/14/25 14:00 04/14/25 14:00 04/14/25 14:00 04/14/25 14:00
MDM/Problems Addressed
Differential Diagnosis Includes:
74yoM here with intermittent R flank pain x 3 days. Started with rigors this morning. Temp 102.9. BP stable. He is relatively well appearing. No CVA tenderness noted. Differential diagnosis includes but is not limited to: Kidney stone, UTI,
pyelonephritis, sepsis, bacteremia
Initial ED plan: Check septic workup including lactate, blood cultures, UA, and CT abdomen without contrast. Tylenol and IV fluid bolus.
*Pulse Oximetry
SaO2: 97
Oxygen Mode of Delivery: Room air
Patient hypoxic: no (97%)
*Critical Care Note
Total Time (30-74mins, 75-104mins- exclusive of procedures): Not Applicable
Update Note
Update Note:
CT shows bilateral obstructive uropathy secondary to a 7 mm stone in the distal right ureter and a 4 mm stone in the left mid ureter. UA with >100 WBC. White count and lactate normal. Creatinine 2.1, up from baseline around 1. Urology notified
and IV Rocephin ordered. Plan for urgent stent placement today. Patient admitted for further management.
ED Attending Note
-
Portions of this chart may have been created with voice recognition software.� Occasional wrong word or��sound alike� substitutions may have occurred due to the inherent limitations of voice recognition software.
Discharge Plan
Departure
Patient Disposition: Admit
Date of Disposition: 04/14/25
Time of Disposition: 10:40
Presentation/result/management discussed w/ accepting MD/DO: Hospitalist
Discharge Problem:
Bilateral ureteral calculi, Sepsis, Acute kidney injury
Interventions
Interventions:
*Risk Screen - Suicide Last Done: 04/14/25 08:29
*General Assessment Last Done: 04/14/25 08:31
*Neglect/Abuse Screening Last Done: 04/14/25 10:07
*ED- Fall Risk Assessment Last Done: 04/14/25 10:07
*ED COVID-19 Vaccine History Last Done: 04/14/25 10:07
*Nursing Disposition Last Done: 04/14/25 12:54
WK-Oelkrm-Emjanbnnul Assessment Last Done: 04/14/25 10:07
ED-Male Genitourinary Assessment Last Done: 04/14/25 10:07
Discharge Date and Time
Discharge Date/Time: 04/14/25 12:55
[2025-04-14] MEDS: TYLENOL 1000 MG PO (10:02)
[2025-04-14] MEDS: NSS 1000 IV ×3 (10:05→23:06)
[2025-04-14 10:12] LABS: Hematocrit 37.5 % (39.0-52.0); Hemoglobin 12.7 g/dL (13.0-18.0); Mean Corp Hgb Conc. 33.9 g/dL (33.0-37.0); Mean Corpuscular Volume 89.5 fL (80.0-94.0); Nucleated Red Blood Cells % 0 % (-); Platelet Count 153 10^3/uL (130-400); Red Cell Dist. Width 13.7 % (11.5-14.5)
[2025-04-14 10:15] LABS: Urine Character Cloudy (Clear)
[2025-04-14 10:27] LABS: Urine White Cell >100 /HPF (0-5)
[2025-04-14 10:31] LABS: ALT (SGPT) 18 U/L (0-50); AST (SGOT) 28 U/L (17-59); Albumin 3.6 g/dl (3.5-5.0); Alkaline Phosphatase 59 U/L (38-126); Blood Urea Nitrogen 34 mg/dl (9-20); Calcium 8.9 mg/dl (8.4-10.2); Carbon Dioxide 22 mmol/L (22-30); Chloride 107 mmol/L (98-107); Estimated Creatinine Clearance 31 ml/min; Glucose 113 mg/dl (70-99); Potassium 3.9 mmol/L (3.5-5.1); Sodium 134 mmol/L (135-145); Total Protein 6.1 g/dl (6.3-8.2); eGFR 32.62
[2025-04-14] MEDS: ROCEPHIN 2000 MG IV (11:19)
--- NOTE | 2025-04-14 11:26 | CM ---
Patient seen at bedside with present in ED. Patient states that he lives with in a 2 story home with one step to enter and 14 steps to the second floor. Patient PCP is Dr. Ryanne Mcclelland and he uses [facility] [place]. Patient has no
VN or DME in the past. CM will continue to follow for discharge planning needs.
Plan; home with no needs vs home with VN
--- NOTE | 2025-04-14 11:54 | CON.MD ---
Consultation - Medical
-
see dictated note
pt with recent hx of stones/sepsis
now presents with right flank pain and fever 102
HD stable at this time
Ct shows bilateral obstructing stones
CR up to 2
plan for hydration/iv antibx and OR as soon as room available for cysto/bilateral ureteral stents
risks, benefits, alternatives and disabilities reviewed
will likely need step down unit post op
Consultation
-
Date/Time Consultation Requested: 04/14/25 at 10:30am
Date/Time Consultation Performed: 04/14/25 at noon
Requesting Provider: ER
Performing Provider: Dr fuentse
Reason for Consultation: stones/fever
--- NOTE | 2025-04-14 13:04 | HP.FOC2 ---
Focused History & Physical
Chief Complaint
HPI:
Chief Complaint:
stone and fever
HPI / Indication for Planned Procedure:
pt with bilateral ureteral stones- elevated cr- and fever with + UA
Relevant Past Medical History: Hypertension and Other (stones and UTI)
Relevant Social History: Negative
Relevant Family History: Negative
Relevant Past Surgical History: Positive for (multiple stone procedures)
Review of Systems
Review of Pertinent Systems: All Systems Negative Except for the Following Positives (fevers/nasuea and back pain)
Medication
See Medication form for detailed medications: Yes
Medication List (including Herbals & OTC):
atenolol 50 mg tablet 50 mg PO DAILY Blood pressure 06/29/20
therapeutic multivitamin 1 tab PO DAILY Supplement 06/25/24
ibuprofen 200 mg tablet (Advil) 400 mg PO Q8HPRN PRN mild pain 04/14/25
Medications Reviewed: Yes
Allergies and Reactions
Patient has Allergies: Yes
Noted Allergies and Reactions:
Allergy/AdvReac Type Severity Reaction Status Date / Time
Iodinated Contrast Media Allergy VOICE Verified 04/14/25 08:30
CHANGE,
THROAT
IRRIATION
Penicillins Allergy Unknown, Verified 04/14/25 12:07
reaction
as a
child;
tolerated
cephalosporins
Pertinent Physical Exam
All Other Systems: Negative
Head/Neck: Normal
Lungs: Normal
Heart: Normal
Abdomen: Normal
Extremities: Normal
Neurological: Normal
Diagnosis / Assessment
bilateral ureteral stones with fever/+ua and elevated cr
Plan / Procedure
to OR for stents
Anesthesia/Sedation to be done by Anesthesia Provider: Yes
--- NOTE | 2025-04-14 13:24 | W.PN.UPDATE ---
Update Note
Progress Note Update
74-year-old male with HTN, HLD, H/O NHL in remission H/O recurrent nephrolithiasis s/p ureteral stent that is presenting to the ED due to complaint of chills that started over the last 3 days. Associated with intermittent right flank pain that he
states feels similar to previous episodes of kidney stones. Awoke this morning with shaking chills that lasted a few hours, was encouraged by his to come to the ED for further evaluation. Flank pain did improve shortly prior to arrival.
Denies dysuria, hematuria, abdomen pain, back pain, chest pain, dyspnea. Upon arrival was febrile 102.5 �F though otherwise hemodynamically stable and on room air. ED blood work showed hemoglobin 12.7, normal WBC with neutrophilic predominance,
sodium 134, creatinine 2.1 with BUN 34. UA with 4+ blood, 2+ ketones, 3+ leukocyte esterase, >100 WBC/hpf. CT A/P demonstrated bilateral obstructive uropathy with 7 mm calculus in the mid to distal right ureter and 4 mm calculus in the mid left
ureter, bilateral hydronephrosis. Blood cultures x 2 were obtained, as well as urine culture. Was started on IV ceftriaxone empirically. Evaluated by urology in the ED who recommended OR for ureteral stent placement today.
Sepsis secondary to infected ureterolithiasis. CT demonstrating bilateral obstructive uropathy. Temperature 102.5, HR >90, RR >20 meeting SIRS criteria. Blood cultures and urine culture obtained and was started on IV ceftriaxone in the ED.
Planning for source control with ureteral stent placement today with urology. Will continue with IV ceftriaxone and follow cultures. Trend CBC and temperature curve.
Postrenal NOAM with bilateral obstructive uropathy. Creatinine 2.1 up from baseline near 0.8. CT demonstrating bilateral hydronephrosis due to uropathy. Will plan for intervention with urology as above today. Continue with maintenance IV fluids
and trend BMP. Plan for likely Perdomo after procedure. Avoid nephrotoxic agents.
Recurrent nephrolithiasis. Patient states he avoids calcium in his diet. Also states he stays hydrated and avoids added salts. Encourage patient to continue with low sodium diet and oral hydration. Should avoid ice tea and other oxalate
containing compounds. Should have stone analysis upon retrieval as OP with urologist
N.p.o. pending OR today, low-sodium diet thereafter
Plan for SQ heparin after OR for thromboprophylaxis
Full code
I have personally evaluated the patient at the bedside in PACU. I will be admitting Ed Degroot to IMU. He is at high risk for morbidity due to post renal NOAM with obstructive uropathy. He will require intensive monitoring of his renal
function and possible readjustment to his antimicrobial regimen. I have discussed this case with the ED attending and urologist. I have also reviewed the case with the resident and agree with all documentation unless otherwise specified.
--- NOTE | 2025-04-14 13:40 | W.IMMPOSTOP ---
Surgical Immed Post Op Note
-
Primary Surgeon:
alfredo
Assisting Surgeon:
Pre-op Diagnosis:
bilateral ureteral stones/UTI/CRI
Post-op Diagnosis:
same
Procedure Performed:
cysto,bilateral stent insertion
Anesthesia Type:
gen
Specimen / Cultures:
none
Estimated Blood Loss:
1cc
Complications:
none
Operative Findings:
right and left stent placed
purulent high pressure urine drained from right side
mariscal placed
--- NOTE | 2025-04-14 15:13 | PTCARENOTE ---
Patient received from PACU, patients at bedside. Patient AAO, VSS. Patient was pulled over to room bed. Skin assessment performed with second RN, no wounds noted. Admission questions done, oriented to room.
--- NOTE | 2025-04-14 15:19 | HPS.HSE ---
Family Physician
-
Family Physician: Ryanne Victoria MD
Chief Complaint
-
R flank pain, fevers, chills
History of Present Illness
Mr. Degroot is a 74-year-old male with HTN, HLD, H/O NHL in remission with a history of recurrent nephrolithiasis s/p ureteral stent that is presenting to the ED due to complaint of chills and right flank pain that started on 04/11. He has
intermittent right flank pain that he states feels similar to previous episodes of kidney stones. Awoke this morning with shaking chills and subjective fever that lasted a few hours, was encouraged by his to come to the ED for further
evaluation. He took ibuprofen and flank pain improved shortly prior to arrival. Denies dysuria, hematuria, abdomen pain, back pain, chest pain, dyspnea. In the ED he was febrile to 102.5 �F though otherwise hemodynamically stable and on room
air. ED blood work showed hemoglobin 12.7, normal WBC with neutrophilic predominance, sodium 134, creatinine 2.1, baseline 0.8, with BUN 34. UA with 4+ blood, 2+ ketones, 3+ leukocyte esterase, >100 WBC/hpf. CT A/P demonstrated bilateral
obstructive uropathy with 7 mm calculus in the mid to distal right ureter and 4 mm calculus in the mid left ureter, bilateral hydronephrosis. Blood cultures x 2 were obtained, as well as urine culture. Was started on IV ceftriaxone empirically and
given Tylenol. He was evaluated by urology in the ED who recommended OR for ureteral stent placement today.
Medical History
Past Medical History
Past Medical History: Reports HTN, Hypercholesterolemia and Other (Non-Hodgkin's lymphoma in remission)
Past Surgical History: Reports Appendectomy, Urological (Lithotripsy, ureteral stents) and Other (Cataract surgery)
Social History
Tobacco: Former Smoker (30 years prior)
Alcohol: Occasional (2-3 drinks a week)
Drug: None
Personal:
Living: With Family
Employment: Retired
Family History
Family History: Not pertinent
Allergies / Home Medications
Allergies reflects when Allergies were last updated in [employer].
Home Medications with original date entered in [employer]
Allergy/Medication List:
Allergies
Allergy/AdvReac Type Severity Reaction Status Date / Time
Iodinated Contrast Media Allergy VOICE Verified 04/14/25 08:30
CHANGE,
THROAT
IRRIATION
Penicillins Allergy Unknown, Verified 04/14/25 12:07
reaction
as a
child;
tolerated
cephalosporins
Home Medications
atenolol 50 mg tablet 50 mg PO DAILY Blood pressure 06/29/20
therapeutic multivitamin 1 tab PO DAILY Supplement 06/25/24
ibuprofen 200 mg tablet (Advil) 400 mg PO Q8HPRN PRN mild pain 04/14/25
Review of Systems
-
History Source: Patient and Family
Constitutional: Denies Fever or Fatigue
EENT: Reports No Symptoms; Denies Sore Throat or Runny Nose
Respiratory: Reports No Symptoms; Denies Cough or Hemoptysis
Cardiac: Reports No Symptoms; Denies Chest Pain or Diaphoresis
Abdomen/GI: Reports No Symptoms; Denies Abdominal Pain, Nausea or Vomiting
: Reports Flank Pain (Right sided) and Dark Urine; Denies Dysuria, Frequency or Bleeding
Musculoskeletal: Reports No Symptoms
Skin: Reports No Symptoms
Neurological: Reports No Symptoms; Denies Dizzy or Headache
Physical Exam
Vital Signs
Vital Signs
Temp Pulse Resp BP Pulse Ox
97.1 F 74 19 105/56 99
04/14/25 14:17 04/14/25 14:35 04/14/25 14:35 04/14/25 14:35 04/14/25 14:35
Physical Exam
General: Well Developed, Well Nourished, No Apparent Distress, Comfortable and Sweats; No Fever
HEENT: NormoCephalic, Anicteric and Atraumatic
Respiratory: Clear and Non Labored Respirations; No Wheezes or Crackles
Cardiac: S1/S2 and Regular Rhythm; No Tachycardia or Murmur
GI: Soft, Non Tender, Non Distended and Normal Bowel Sounds
Genito-urinary: No costovertebral tender
Musculoskeletal: No Clubbing, No Cyanosis and No Edema
Skin: Warm and Dry; No Rash
Neuro: Awake, Alert, Oriented, No Motor Deficits and Nonfocal/grossly intact
Laboratory Results
-
04/14/25 09:49
04/14/25 09:49
Laboratory Results
Lactic Acid 1.1 mmol/L (0.7-2.0) 04/14/25 09:49
Total Bilirubin 1.7 mg/dl (0.2-1.3) H 04/14/25 09:49
AST 28 U/L (17-59) 04/14/25 09:49
ALT 18 U/L (0-50) 04/14/25 09:49
Alkaline Phosphatase 59 U/L (38-126) 04/14/25 09:49
Impression/Plan
-
Mr. Degroot is a 74-year-old male with HTN, HLD, H/O NHL in remission with a history of recurrent nephrolithiasis s/p ureteral stent that is presenting to the ED due to complaint of chills and right flank pain that started on 04/11. He has
intermittent right flank pain that he states feels similar to previous episodes of kidney stones. Awoke this morning with shaking chills and subjective fever that lasted a few hours, was encouraged by his to come to the ED for further
evaluation. He took ibuprofen and flank pain improved shortly prior to arrival. Denies dysuria, hematuria, abdomen pain, back pain, chest pain, dyspnea. In the ED he was febrile to 102.5 �F though otherwise hemodynamically stable and on room
air. ED blood work showed hemoglobin 12.7, normal WBC with neutrophilic predominance, sodium 134, creatinine 2.1, baseline 0.8, with BUN 34. UA with 4+ blood, 2+ ketones, 3+ leukocyte esterase, >100 WBC/hpf. CT A/P demonstrated bilateral
obstructive uropathy with 7 mm calculus in the mid to distal right ureter and 4 mm calculus in the mid left ureter, bilateral hydronephrosis. Blood cultures x 2 were obtained, as well as urine culture. Was started on IV ceftriaxone empirically and
given Tylenol. He was evaluated by urology in the ED who recommended OR for ureteral stent placement today.
PLAN:
#Sepsis secondary to infected ureterolithiasis.
#CT demonstrating bilateral obstructive uropathy.
# Recurrent right nephrolithiasis
Passed stones in January and February 2025
Temp 102.5, HR >90, RR >20 meeting SIRS criteria, likely source are his stones
Tylenol ABX IV fluids in ED
- Follow-up blood cultures
- Follow-up urine culture
-IV ceftriaxone
- Urology consult
-ureteral stent placement today with urology
-Trend CBC
- IV fluids as needed
- Low-sodium diet
#Postrenal NOAM with bilateral obstructive uropathy.
Creatinine 2.1 up from baseline near 0.8.
-IV fluids
-trend BMP
-Plan for likely Perdomo after procedure
-Avoid nephrotoxic agents
- Renally dose medications
# Essential HTN
- Continue atenolol with parameters
# Hyperlipidemia
Continue to monitor
DVT prophylaxis
SQ heparin
GI prophylaxis
Famotidine
CODE STATUS
Full code
[2025-04-14] MEDS: HEPARIN 5000 UNITS SC (19:53)
[2025-04-15] VITALS (11 sets, daily range): BP systolic 102–142; BP diastolic 60–73
--- NOTE | 2025-04-15 00:45 | PTCARENOTE ---
Assumed care for patient overnight. Pt AAOx3, pleasant. bedside at change of shift. Pt upright and eating. NSR on the monitor. 97% on RA. Pt denies any pain. Perdomo draining cloudy yellow urine. VSS. IVF cont. Call hernandez within reach.
[2025-04-15 05:57] LABS: Blood Urea Nitrogen 35 mg/dl (9-20); Calcium 8.4 mg/dl (8.4-10.2); Carbon Dioxide 21 mmol/L (22-30); Chloride 109 mmol/L (98-107); Estimated Creatinine Clearance 39 ml/min; Glucose 114 mg/dl (70-99); Magnesium 2.2 mg/dl (1.6-2.3); Potassium 4.4 mmol/L (3.5-5.1); Sodium 137 mmol/L (135-145); eGFR 42.04
[2025-04-15 06:00] LABS: Hematocrit 36.4 % (39.0-52.0); Hemoglobin 12.4 g/dL (13.0-18.0); Mean Corp Hgb Conc. 34.1 g/dL (33.0-37.0); Mean Corpuscular Volume 91.7 fL (80.0-94.0); Platelet Count 143 10^3/uL (130-400); Red Cell Dist. Width 13.7 % (11.5-14.5)
--- NOTE | 2025-04-15 06:28 | W.PN.URO.CBU ---
Today's Communication / Plan
-
mariscal out
await cx's
Assessment / Plan
-
bilateral ureteral stones with UTI and YESIKA
s/p bilateral ureteral stents 04/13
pt feels much better
mariscal out- start flomax and pyridium
continue antibx- await cx's
Diagnosis
-
Date of Service: April 15, 2025
-
Patient Diagnosis:
bilateral ureteral stones
YESIKA
UTI
Post Op Day:
bilateral ureteral stents 04/13
Subjective
-
pt feels better
afebrile- HD stable
urine clear
cx's and cr level pending
Objective
-
Vital Signs
Temp Pulse Resp BP Pulse Ox
97.6 F 55 24 124/67 97
04/15/25 03:11 04/15/25 06:00 04/15/25 06:00 04/15/25 06:00 04/15/25 06:00
Intake and Output
04/13/25 04/14/25 04/15/25
06:59 06:59 06:59
Intake Total 1350 / 1350
Output Total 1874
Balance -525 / -525
Intake:
IV fluids (Total) 1350 / 1350
Normosol 150 / 150
Output:
Urine, Mariscal 1874
Laboratory Results
04/15/25 05:22
04/15/25 05:22
Review of Systems
-
Constitutional: Fatigue
Respiratory: No Symptoms
Cardiac: No Symptoms
Abdomen/GI: No Symptoms
Physical Exam
-
General - no acute distress
Abdomen - soft, non-tender
Genitalia - mariscal
[2025-04-15] MEDS: TENORMIN 50 MG PO (08:54)
[2025-04-15] MEDS: THERAGRAN 1 TABLET PO (08:54)
[2025-04-15] MEDS: NSS 1000 IV ×2 (08:54→19:55)
[2025-04-15] MEDS: FLOMAX 0.4 MG PO (08:55)
[2025-04-15] MEDS: HEPARIN 5000 UNITS SC ×2 (08:55→19:56)
[2025-04-15] MEDS: PEPCID 20 MG PO (08:55)
--- NOTE | 2025-04-15 10:02 | W.PN.HOSP.TC ---
Today's Communication/Plan
-
Blood cultures positive for gram-positive cocci in clusters. 1 of 2 Staph epidermidis possibly contaminant
IV Rocephin, vancomycin, low threshold to stop
Infectious disease consult
Assessment / Plan
Assessment / Plan
Mr. Degroot is a 74-year-old male with HTN, HLD, H/O NHL in remission with a history of recurrent nephrolithiasis s/p ureteral stent that is presenting to the ED due to complaint of chills and right flank pain that started on 04/11. He has
intermittent right flank pain that he states feels similar to previous episodes of kidney stones. Awoke this morning with shaking chills and subjective fever that lasted a few hours, was encouraged by his to come to the ED for further
evaluation. He took ibuprofen and flank pain improved shortly prior to arrival. Denies dysuria, hematuria, abdomen pain, back pain, chest pain, dyspnea. In the ED he was febrile to 102.5 �F though otherwise hemodynamically stable and on room
air. ED blood work showed hemoglobin 12.7, normal WBC with neutrophilic predominance, sodium 134, creatinine 2.1, baseline 0.8, with BUN 34. UA with 4+ blood, 2+ ketones, 3+ leukocyte esterase, >100 WBC/hpf. CT A/P demonstrated bilateral
obstructive uropathy with 7 mm calculus in the mid to distal right ureter and 4 mm calculus in the mid left ureter, bilateral hydronephrosis. Blood cultures x 2 were obtained, as well as urine culture. Was started on IV ceftriaxone empirically and
given Tylenol. He was evaluated by urology in the ED who recommended OR for ureteral stent placement today. On hospital day 1 patient had leukocytosis, possibly from instrumentation but patient's blood cultures grew gram-positive cocci in
clusters. ID was consulted and patient was started on empiric ceftriaxone and vancomycin. 1 of 2 bottles grew Staph epidermidis possibly contaminant, blood cultures were repeated, reached out to ID for recommendations.
#Sepsis secondary to infected ureterolithiasis.
#CT demonstrating bilateral obstructive uropathy.
# Recurrent right nephrolithiasis
# Leukocytosis
Passed stones in January and February 2025
Temp 102.5, HR >90, RR >20 meeting SIRS criteria, likely source are his stones
Tylenol ABX IV fluids in ED
- blood cultures positive for gram-positive cocci in clusters, 1 of 2 bottles grew Staph epidermidis possibly contaminant awaiting second bottle
- Follow-up urine culture
-IV ceftriaxone, vancomycin, low threshold to DC
-ID consult
- Urology consult
-ureteral stent placement without issues
-Trend CBC
- IV fluids
-Repeat blood culture
#Postrenal NOAM with bilateral obstructive uropathy, improving
Creatinine 2.1 on admission up from baseline near 0.8.
-IV fluids
-trend BMP
-Avoid nephrotoxic agents
- Renally dose medications
# Essential HTN
- Continue atenolol with parameters
# Hyperlipidemia
Continue to monitor
DVT prophylaxis
SQ heparin
GI prophylaxis
Famotidine
CODE STATUS
Full code
Anticipated Discharge: Within 24 hours
Subjective/Interval History
-
Patient was seen at bedside today. Reports doing really well feels much better than yesterday. Reports no complaints. Date of Service: April 15, 2025
Objective Data
-
Labs:
Laboratory Results
04/15/25
05:22
WBC 15.2 H
Hgb 12.4 L
Hct 36.4 L
Plt Count 143
Sodium 137
Potassium 4.4
Chloride 109 H
Carbon Dioxide 21 L
BUN 35 H
Creatinine 1.7 H
Glucose 114 H
Calcium 8.4
Vital Signs:
Vital Signs
Temp Pulse Resp BP Pulse Ox
97.9 F 64 21 130/70 99
04/15/25 07:23 04/15/25 09:00 04/15/25 09:00 04/15/25 08:00 04/15/25 09:00
I&O
04/14/25 04/15/25 04/16/25
06:59 06:59 06:59
Intake Total 1350 / 1350
Output Total 1875 / 1875 500 / 500
Balance -525 / -525 -500 / -500
Review of Systems
-
History Source: Patient
All other systems: Reviewed and negative
Constitutional: Reports No Symptoms; Denies Fever or Fatigue
EENT: Reports No Symptoms Reported; Denies Sore Throat or Runny Nose
Respiratory: Reports No Symptoms; Denies Cough, Trouble Breathing or Wheezing
Cardiac: Reports No Symptoms; Denies Chest Pain, Diaphoresis or Palpitations
Abdomen/GI: Reports No Symptoms; Denies Abdominal Pain, Nausea, Vomiting or Diarrhea
Genitourinary: Reports No Symptoms; Denies Dysuria, Frequency or Flank Pain
Musculoskeletal: Reports No Symptoms; Denies Joint Pain
Skin: Reports No Symptoms; Denies Itching
Neuro: Reports No Symptoms; Denies Dizzy or Headache
Physical Exam
-
General: Well Developed, Well Nourished, No Apparent Distress, Comfortable and Fever
HEENT: Normocephalic and Atraumatic
Respiratory: Clear to Auscultation and Non Labored Respirations; Negative Wheezes or Crackles
Cardiac: Regular Rhythm and S1/S2; Negative Murmur
GI: Soft, Nontender, Nondistended and Normal Bowel Sounds
Genito-urinary: Clear Urine
Musculoskeletal: No Clubbing, No Cyanosis and No Edema
Skin: Warm and Dry; Negative Rash
Neuro: Awake, Alert, Oriented and AO x 3
Psych: Calm
--- NOTE | 2025-04-15 10:18 | PHA.VAN.IN ---
Assessment
- Assessment
Renal Function: SCR Appears Elevated from baseline (2.1-->1.7 vs ~0.8)
Concomitant Antimicrobials: ceftriaxone
Plan
- Plan
Initial / Loading Dose: 1250mg x2 doses today as a divided load
Maintenance Regimen: dosing by level
Monitoring: random 04/16 600
Will dose by level given elevated SCR
However, renal function may improve quickly post stent - given positive blood cultures, will give divided load
Pharmacokinetics Vancomycin I
- -
Patient Age: 74
Patient Sex: Male
Vancomycin Day #: 1
Indication: Bacteremia
Requesting Provider: Dr. Marquez (resident)
Pertinent Antimicrobial Allergies:
penicillins - unknown (as a child); tolerated cephalosporins
Height / Weight:
Height 5 ft 9 in
Actual Weight 83.915 kg
- Vital Signs / Lab Results
Temp Pulse Resp BP Pulse Ox
97.9 F 64 21 130/70 99
04/15/25 07:23 04/15/25 09:00 04/15/25 09:00 04/15/25 08:00 04/15/25 09:00
Lab Results - Hematology
04/14/25 04/15/25
09:49 05:22
WBC 9.2 15.2 H
Lab Results - Chemistry
04/14/25 04/15/25
09:49 05:22
BUN 34 H 35 H
Creatinine 2.1 H 1.7 H
Estimated Creat Clear 31 39
Albumin 3.6
04/14/25
09:49
Lactic Acid 1.1
Lab Results - Urine
04/14/25
09:49
Urine Nitrite (Reflex) Negative
Leukocyte Esterase Rfl 3+ A
Urine WBC (Reflex) >100 A
Ur Squamous Epith Cells Not Reportable
Urine Bacteria (Reflex)
Microbiology Results
04/14/25 09:49 Blood Culture - Preliminary
Blood/Venous Positive culture in progress
Gram Stain - Preliminary
04/14/25 11:23 Blood Culture - Preliminary
Blood/Venous Positive culture in progress
Gram Stain - Preliminary
[2025-04-15] MEDS: ROCEPHIN 2000 MG IV (11:21)
[2025-04-15] MEDS: STERILE WATER FOR INJECTION 20 ML IV (11:22)
[2025-04-15] MEDS: VANCOCIN 275 MG IV ×2 (11:22→19:56)
--- NOTE | 2025-04-15 11:41 | CM ---
Met with patient at bedside; he does not think he will need VN when stable for discharge
Plan: discharge to home when medically stable; will transport home
--- NOTE | 2025-04-15 16:22 | CON.ID ---
Consultation
-
Date/Time Consultation Requested: 04/15/2025 09:39
Date/Time Consultation Performed: 04/15/2025 16:00
Requesting Provider: Dr. Marquez
Performing Provider: Dr. Shea
Reason for Consultation: Bacteremia
Chief Complaint / Past History
History of Present Illness
Ed Degroot is a 74-year-old man being evaluated at the request of Dr. Marquez regarding bacteremia. History is obtained from chart review, along with patient interview.
The patient presented to [facility] on 03/25 for evaluation of chills. He reports that over the prior 3 days he has been having right flank discomfort, which feels similar to prior episodes of kidney stones. On the day of admission he
reports that he woke up with shaking chills which lasted several hours. This past, but over concern for more significant disease, he came to the ER for further evaluation.
Here, he was found to have a normal white count but with left shift. Imaging showed obstructive uropathy, and the patient underwent stent placement bilaterally. Blood cultures obtained at admission are now positive for Staphylococcus epidermidis,
and a urine culture is also revealing growth of a staph species. Infectious Diseases is asked to comment on further antibiotic management. The patient has been started on empiric vancomycin.
Past History
Additional Past Medical History:
HTN
Nephrolithiasis
Hx lymphoma (large B cell, 2009; in remission)
Allergy History:
Iodinated Contrast Media Allergy (Verified 04/14/25 08:30)
VOICE CHANGE, THROAT IRRIATION
Penicillins Allergy (Verified 04/14/25 12:07)
Unknown, reaction as a child; tolerated cephalosporins
Medications Reviewed: Yes
Current Antibiotics:
Ceftriaxone 2 gm IV q.24 hours
Vancomycin (dosing per pharmacy)
Social History
Tobacco: Former Smoker
Alcohol: Occasional
Drug: None
Personal:
Living: With Family
Employment: Retired
Family History
Family History: Not Pertinent
Review of Systems
Vital Signs
Temp Pulse Resp BP Pulse Ox
98.2 F 64 21 130/70 99
04/15/25 11:15 04/15/25 09:00 04/15/25 09:00 04/15/25 08:00 04/15/25 09:00
Physical Exam
Physical Exam
Constitutional: No Acute Distress, Comfortable and Non-toxic
Eyes: No Conjunctival Hemorrhage and Sclera Anicteric
Cardiovascular: Regular Rate and S1/S2; Negative S3/S4
Pulmonary: Clear; Negative Wheezes, Rales or Rhonchi
Gastrointestinal: Soft, Non Tender, Non Distended, Normal Bowel Sounds and No Rebound
Genito-Urinary: Negative CVA Tenderness
Neurological: Awake and Alert
Psychological: Calm
Lab / Diagnostic Study Results
04/15/25 05:22
04/15/25 05:22
Abs Immat Gran (auto) 0.1 10^3/uL (0-0.05) H 04/14/25 09:49
Absolute Neuts (auto) 8.6 10^3/uL (1.4-6.5) H 04/14/25 09:49
Absolute Lymphs (auto) 0.2 10^3/uL (1.2-3.4) L 04/14/25 09:49
Absolute Monos (auto) 0.4 10^3/uL (0.1-0.6) 04/14/25 09:49
Absolute Basos (auto) 0.0 10^3/uL (0-0.2) 04/14/25 09:49
Immature Gran % 0.7 % (0-0.5) H 04/14/25 09:49
Neutrophils % 93.0 % (42.2-75.2) H 04/14/25 09:49
Lymphocytes % 2.0 % (20.5-51.1) L 04/14/25 09:49
Monocytes % 4.0 % (1.7-9.3) 04/14/25 09:49
Eosinophils % 0.0 % (0-6) 04/14/25 09:49
Basophils % 0.3 % (0-2) 04/14/25 09:49
Lactic Acid 1.1 mmol/L (0.7-2.0) 04/14/25 09:49
Ur Squamous Epith Cells Not Reportable 04/14/25 09:49
Microbiology Results
Micro:
04/14/25 11:23 Blood Culture - Preliminary
Blood/Venous Positive culture in progress
Gram Stain - Preliminary
04/14/25 09:49 Urine Culture - Preliminary
Urine Staphylococcus species
04/14/25 09:49 Blood Culture - Preliminary
Blood/Venous Staphylococcus epidermidis
Gram Stain - Preliminary
04/15/25 10:15 Blood Culture - Pending
Blood/Venous
Imaging:
04/14/2025 CT abdomen/pelvis without IV contrast: bilateral obstructive uropathy secondary to a 7 mm calculus in the mid to distal right ureter and a 4 mm calculus in the mid left ureter causing mild bilateral hydronephrosis. Bilateral
nephrolithiasis is noted. Please see full dictation for additional detail.
Assessment / Plan
Obstructive uropathy
Complicated urinary tract infection
Bacteremia with staph epidermidis
- Given clinical presentation likely a true pathogen.
Leukocytosis
Hx HTN
Nephrolithiasis
Hx lymphoma (large B cell, 2010; in remission)
Recommendations:
Continue with current empiric antibiotics.
Follow Vanco levels closely to prevent nephrotoxicity
Monitor white count and temperature curve.
Await further culture data to guide further antimicrobial selection and potential de-escalation.
Further recommendations as additional data is returned.
--- NOTE | 2025-04-15 17:44 | PTCARENOTE ---
Pt's assessment as documented. Aox3 and very pleasant. Medications administered as ordered, see MAR. Voiding in urinal. Care as documented. Able to make needs known; call hernandez within reach.
--- NOTE | 2025-04-15 22:02 | PTCARENOTE ---
Patient AAOx3, pleasant. Afebrile. Pt has absence of any pain or discomfort. Utilizing urinal. Constantia urine. Vanco administered see NOV. IVF cont. Pt to be transferred to . Call hernandez within reach.
--- NOTE | 2025-04-15 22:33 | PTCARENOTE ---
Patient transported to via wheelchair. Report called to Aliyah FRANKLIN. All belongings sent with the patient.
[2025-04-16] MEDS: THERAGRAN 1 TABLET PO (07:53)
[2025-04-16] MEDS: FLOMAX 0.4 MG PO (07:53)
[2025-04-16] MEDS: TENORMIN 50 MG PO (07:53)
[2025-04-16] MEDS: PEPCID 20 MG PO (07:53)
[2025-04-16] MEDS: HEPARIN SC ×2 (07:54→21:54)
[2025-04-16 07:55] VITALS: BP 139/73
--- NOTE | 2025-04-16 08:36 | W.PN.URO.CBU ---
Today's Communication / Plan
-
discharge when medically stable and outpt antibx regimen finalized
Assessment / Plan
-
bilateral ureteral stones with UTI and YESIKA
s/p bilateral ureteral stents 04/13
pt feels much better
mariscal out
am labs- cr and wbc pending
ID following
when antibx regimen finalized- discharge with flomax 0.4mg po qday/pyridium 100mg po bid and prn tramadol
should call dr kovacs's office saturday to schedule outpt follow up
Diagnosis
-
Date of Service: April 16, 2025
-
Patient Diagnosis:
bilateral ureteral stones
YESIKA
UTI
Post Op Day:
bilateral ureteral stents 04/13
Subjective
-
pt feels much better
afebrile
ucx and blood cx showing staph
Objective
-
Vital Signs
Temp Pulse Resp BP Pulse Ox
98.6 F 63 18 139/73 96
04/16/25 07:55 04/16/25 07:55 04/16/25 07:55 04/16/25 07:55 04/16/25 07:55
Intake and Output
04/15/25 04/16/25 04/17/25
06:59 06:59 06:59
Intake Total 1350 / 1350 960 / 960
Output Total 1874 2250 / 2250
Balance -525 / -525 -1290 / -1290
Intake:
Oral fluids 960 / 960
IV fluids (Total) 1350 / 1350
Normosol 150 / 150
Output:
Urine, Mariscal 1874 / 1874 500 / 500
Urine, Voided 0 / 1750
Other:
Number of approximated MODERATE 3
amounts of urine
Review of Systems
-
Constitutional: No Symptoms
Respiratory: No Symptoms
Cardiac: No Symptoms
Abdomen/GI: No Symptoms
: Frequency
Physical Exam
-
General - no acute distress
[2025-04-16 08:45] LABS: Hematocrit 38.6 % (39.0-52.0); Hemoglobin 12.8 g/dL (13.0-18.0); Mean Corp Hgb Conc. 33.2 g/dL (33.0-37.0); Mean Corpuscular Volume 91.0 fL (80.0-94.0); Platelet Count 186 10^3/uL (130-400); Red Cell Dist. Width 13.8 % (11.5-14.5)
[2025-04-16] MEDS: STERILE WATER FOR INJECTION 20 ML IV (09:08)
[2025-04-16] MEDS: ROCEPHIN 2000 MG IV (09:09)
[2025-04-16 09:24] LABS: Blood Urea Nitrogen 31 mg/dl (9-20); Calcium 8.3 mg/dl (8.4-10.2); Carbon Dioxide 21 mmol/L (22-30); Chloride 113 mmol/L (98-107); Estimated Creatinine Clearance 47 ml/min; Glucose 78 mg/dl (70-99); Potassium 4.3 mmol/L (3.5-5.1); Sodium 142 mmol/L (135-145); eGFR 53.07
--- NOTE | 2025-04-16 10:25 | W.PN.HOSP.TC ---
Today's Communication/Plan
-
Continue empiric treatment
Repeat blood culture negative at 24 hours
Awaiting sensitivities, then transition to p.o.
Assessment / Plan
Assessment / Plan
Mr. Degroot is a 74-year-old male with HTN, HLD, H/O NHL in remission with a history of recurrent nephrolithiasis s/p ureteral stent that is presenting to the ED due to complaint of chills and right flank pain that started on 04/11. He has
intermittent right flank pain that he states feels similar to previous episodes of kidney stones. Awoke this morning with shaking chills and subjective fever that lasted a few hours, was encouraged by his to come to the ED for further
evaluation. He took ibuprofen and flank pain improved shortly prior to arrival. Denies dysuria, hematuria, abdomen pain, back pain, chest pain, dyspnea. In the ED he was febrile to 102.5 �F though otherwise hemodynamically stable and on room
air. ED blood work showed hemoglobin 12.7, normal WBC with neutrophilic predominance, sodium 134, creatinine 2.1, baseline 0.8, with BUN 34. UA with 4+ blood, 2+ ketones, 3+ leukocyte esterase, >100 WBC/hpf. CT A/P demonstrated bilateral
obstructive uropathy with 7 mm calculus in the mid to distal right ureter and 4 mm calculus in the mid left ureter, bilateral hydronephrosis. Blood cultures x 2 were obtained, as well as urine culture. Was started on IV ceftriaxone empirically and
given Tylenol. He was evaluated by urology in the ED who recommended OR for ureteral stent placement today. On hospital day 1 patient had leukocytosis, possibly from instrumentation but patient's blood cultures grew gram-positive cocci in
clusters. ID was consulted and patient was started on empiric ceftriaxone and vancomycin. 1 of 2 bottles grew Staph epidermidis possibly contaminant, blood cultures were repeated, reached out to ID for recommendations. ID recommends empiric
treatment until sensitivities return.
#Sepsis secondary to infected ureterolithiasis.
#CT demonstrating bilateral obstructive uropathy.
# Recurrent right nephrolithiasis
# Leukocytosis
Passed stones in January and February 2025
Temp 102.5, HR >90, RR >20 meeting SIRS criteria, likely source are his stones
Tylenol ABX IV fluids in ED
- blood cultures positive for gram-positive cocci in clusters, 1 of 2 bottles grew Staph epidermidis possibly contaminant awaiting second bottle
- urine culture positive for staph species
-IV ceftriaxone, vancomycin
-ID consult, continue current empiric treatment
- Okay for discharge from urology standpoint
-Trend CBC
-Repeat blood culture no growth in 24 hours
- Awaiting sensitivities
#Postrenal NOAM with bilateral obstructive uropathy, improving 1.4
Creatinine 2.1 on admission up from baseline near 0.8.
-trend BMP
-Avoid nephrotoxic agents
- Renally dose medications
# Essential HTN
- Continue atenolol with parameters
# Hyperlipidemia
Continue to monitor
DVT prophylaxis
SQ heparin
GI prophylaxis
Famotidine
CODE STATUS
Full code
Anticipated Discharge: Within 24 hours
Subjective/Interval History
-
Patient was seen at bedside today. He reports feeling great with no issues. Explained we are waiting for sensitivities to come back to tailor antibiotic regiment. Date of Service: April 16, 2025
Objective Data
-
Labs:
Laboratory Results
04/16/25
07:05
WBC 9.8
Hgb 12.8 L
Hct 38.6 L
Plt Count 186 D
Sodium 142
Potassium 4.3
Chloride 113 H
Carbon Dioxide 21 L
BUN 31 H
Creatinine 1.4 H
Glucose 78
Calcium 8.3 L
Vital Signs:
Vital Signs
Temp Pulse Resp BP Pulse Ox
98.6 F 63 18 139/73 96
04/16/25 07:55 04/16/25 07:55 04/16/25 07:55 04/16/25 07:55 04/16/25 07:55
I&O
04/15/25 04/16/25 04/17/25
06:59 06:59 06:59
Intake Total 1350 / 1350 960 / 960
Output Total 1875 / 1875 2250 / 2250
Balance -525 / -525 -1290 / -1290
Review of Systems
-
History Source: Patient
All other systems: Reviewed and negative
Constitutional: Reports No Symptoms; Denies Fever
EENT: Reports No Symptoms Reported; Denies Sore Throat
Respiratory: Reports No Symptoms; Denies Cough or Trouble Breathing
Cardiac: Reports No Symptoms; Denies Chest Pain
Abdomen/GI: Reports No Symptoms; Denies Abdominal Pain
Genitourinary: Reports No Symptoms; Denies Dysuria, Bleeding or Dark Urine
Musculoskeletal: Reports No Symptoms; Denies Joint Pain
Skin: Reports No Symptoms; Denies Itching
Neuro: Reports No Symptoms; Denies Dizzy or Headache
Physical Exam
-
General: Well Developed, Well Nourished, No Apparent Distress and Comfortable
HEENT: Normocephalic and Atraumatic
Respiratory: Clear to Auscultation; Negative Wheezes or Crackles
Cardiac: Regular Rhythm and S1/S2; Negative Murmur or Rub
GI: Soft, Nontender, Nondistended and Normal Bowel Sounds
Genito-urinary: Clear Urine; Negative Bloody Urine
Musculoskeletal: No Clubbing, No Cyanosis and No Edema
Skin: Warm and Dry; Negative Rash
Neuro: Awake, Alert and Oriented
Psych: Calm
--- NOTE | 2025-04-16 10:54 | PHA.VAN.FU ---
Vancomycin Assessment / Plan
- Assessment
Renal Function: SCR Decreasing
WBC's are: WNL
In the past 24 hrs, patient has been: Afebrile
Concomitant Antimicrobials: ceftriaxone
- Assessment - Therapeutic Drug Monitoring
Random Level: 14.2 - drawn ~11H after 2nd dose of 1250mg of divided load
- Dosing Plan
Dosing by Level: Re-dose today (Vanc 1250mg)
- Monitoring Plan
Random Level: 04/17 06
- Follow Up
Pharmacy will continue to follow.
Vancomycin Follow UP
- -
Patient Age: 74
Patient Sex: Male
Vancomycin Day #: 2
Indication: Bacteremia
Requesting Provider: Dr. Marquez (resident) / Dr. Shea
Pertinent Antimicrobial Allergies:
penicillins - unknown (as a child); tolerated cephalosporins
Height / Weight:
Height 5 ft 9 in
Actual Weight 83.915 kg
- Vital Signs / Lab Results
Temp Pulse Resp BP Pulse Ox
98.6 F 63 18 139/73 96
04/16/25 07:55 04/16/25 07:55 04/16/25 07:55 04/16/25 07:55 04/16/25 07:55
Lab Results - Hematology
04/14/25 04/15/25 04/16/25
09:49 05:22 07:05
WBC 9.2 15.2 H 9.8
Lab Results - Chemistry
04/14/25 04/15/25 04/16/25
09:49 05:22 07:05
BUN 34 H 35 H 31 H
Creatinine 2.1 H 1.7 H 1.4 H
Estimated Creat Clear 31 39 47
Albumin 3.6
04/14/25
09:49
Lactic Acid 1.1
Lab Results - Urine
04/14/25
09:49
Urine Nitrite (Reflex) Negative
Leukocyte Esterase Rfl 3+ A
Microbiology Results
04/15/25 10:15 Blood Culture - Preliminary
Blood/Venous No Growth in 24 hours- Final report to follow
04/14/25 11:23 Blood Culture - Preliminary
Blood/Venous Coagulase neg. staphylococcus
Gram Stain - Preliminary
04/14/25 09:49 Blood Culture - Preliminary
Blood/Venous Staphylococcus epidermidis
Gram Stain - Preliminary
04/14/25 09:49 Urine Culture - Preliminary
Urine Staphylococcus species
Therapeutic Drug Monitoring
Random Vancomycin 14.2 ug/ml 04/16/25 07:05
[2025-04-16] MEDS: VANCOCIN 275 MG IV (12:00)
--- NOTE | 2025-04-16 14:58 | CM ---
Patient seen at bedside with
continues with antibiotic
PLAN: Home, CM to follow for needs ?IV abx
--- NOTE | 2025-04-16 15:02 | W.PN.ID1 ---
Date of Service
Date of Service: April 16, 2025
Today's Communication
Continue antibiotics.
Assessment / Plan
Obstructive uropathy
Complicated urinary tract infection
Bacteremia with staph epidermidis
- Given clinical presentation likely a true pathogen.
Leukocytosis
Hx HTN
Nephrolithiasis
Hx lymphoma (large B cell, 2010; in remission)
Recommendations:
Continue with current empiric antibiotics.
Follow Vanco levels closely to prevent nephrotoxicity
Monitor white count and temperature curve.
Await further culture data to guide further antimicrobial selection and potential de-escalation.
Repeat blood cultures negative x 24 hours.
Further recommendations as additional data is returned.
����������������������������������������������������������
Chief Complaint
-: UTI and Bacteremia
Subjective / Review of Systems
Review of Systems: No Fever and No Chills
Vital Signs / Physical Exam
Vital Signs
Vital Signs
Temp Pulse Resp BP Pulse Ox
98.6 F 63 18 139/73 96
04/16/25 07:55 04/16/25 07:55 04/16/25 07:55 04/16/25 07:55 04/16/25 07:55
Physical Exam
Constitutional: No Acute Distress, Comfortable and Non-toxic
Eyes: Sclera Anicteric
Cardiovascular: S1/S2; Negative S3/S4
Pulmonary: Clear; Negative Wheezes
Gastrointestinal: Soft and Non Tender
Neurological: Awake and Alert
Psychological: Calm
Objective Data
Lab Data
Lab Results
04/16/25 07:05
04/16/25 07:05
Estimated Creat Clear 47 ml/min 04/16/25 07:05
Lactic Acid 1.1 mmol/L (0.7-2.0) 04/14/25 09:49
Total Bilirubin 1.7 mg/dl (0.2-1.3) H 04/14/25 09:49
AST 28 U/L (17-59) 04/14/25 09:49
ALT 18 U/L (0-50) 04/14/25 09:49
Alkaline Phosphatase 59 U/L (38-126) 04/14/25 09:49
Most recent labs reviewed.
Micro Results:
04/14/25 09:49 Urine Culture - Preliminary
Urine Staphylococcus species
04/14/25 11:23 Blood Culture - Preliminary
Blood/Venous Coagulase neg. staphylococcus
Gram Stain - Preliminary
04/15/25 10:15 Blood Culture - Preliminary
Blood/Venous No Growth in 24 hours- Final report to follow
04/14/25 09:49 Blood Culture - Preliminary
Blood/Venous Staphylococcus epidermidis
Gram Stain - Preliminary
Imaging:
04/14/2025 CT abdomen/pelvis without IV contrast: bilateral obstructive uropathy secondary to a 7 mm calculus in the mid to distal right ureter and a 4 mm calculus in the mid left ureter causing mild bilateral hydronephrosis. Bilateral
nephrolithiasis is noted. Please see full dictation for additional detail.
[2025-04-16 15:55] VITALS: BP 142/78
[2025-04-16 23:03] VITALS: BP 146/78
[2025-04-17] MEDS: HEPARIN SC (07:40)
[2025-04-17] MEDS: TENORMIN 50 MG PO (07:43)
[2025-04-17] MEDS: FLOMAX 0.4 MG PO (07:43)
[2025-04-17] MEDS: PEPCID 20 MG PO (07:43)
[2025-04-17] MEDS: THERAGRAN 1 TABLET PO (07:43)
[2025-04-17 07:55] VITALS: BP 132/74
[2025-04-17 09:23] LABS: Hematocrit 38.9 % (39.0-52.0); Hemoglobin 13.1 g/dL (13.0-18.0); Mean Corp Hgb Conc. 33.7 g/dL (33.0-37.0); Mean Corpuscular Volume 91.3 fL (80.0-94.0); Platelet Count 202 10^3/uL (130-400); Red Cell Dist. Width 13.8 % (11.5-14.5)
[2025-04-17] MEDS: STERILE WATER FOR INJECTION 20 ML IV (09:47)
[2025-04-17] MEDS: ROCEPHIN 2000 MG IV (09:47)
[2025-04-17 09:48] LABS: Blood Urea Nitrogen 26 mg/dl (9-20); Calcium 8.6 mg/dl (8.4-10.2); Carbon Dioxide 24 mmol/L (22-30); Chloride 110 mmol/L (98-107); Estimated Creatinine Clearance 51 ml/min; Glucose 91 mg/dl (70-99); Potassium 4.2 mmol/L (3.5-5.1); Sodium 142 mmol/L (135-145); eGFR 58.01
--- NOTE | 2025-04-17 09:58 | W.PN.HOSP.TC ---
Today's Communication/Plan
-
Will discuss transition to oral antibiotics with ID
Possible discharge
Assessment / Plan
Assessment / Plan
Mr. Degroot is a 74-year-old male with HTN, HLD, H/O NHL in remission with a history of recurrent nephrolithiasis s/p ureteral stent that is presenting to the ED due to complaint of chills and right flank pain that started on 04/11. He has
intermittent right flank pain that he states feels similar to previous episodes of kidney stones. Awoke this morning with shaking chills and subjective fever that lasted a few hours, was encouraged by his to come to the ED for further
evaluation. He took ibuprofen and flank pain improved shortly prior to arrival. Denies dysuria, hematuria, abdomen pain, back pain, chest pain, dyspnea. In the ED he was febrile to 102.5 �F though otherwise hemodynamically stable and on room
air. ED blood work showed hemoglobin 12.7, normal WBC with neutrophilic predominance, sodium 134, creatinine 2.1, baseline 0.8, with BUN 34. UA with 4+ blood, 2+ ketones, 3+ leukocyte esterase, >100 WBC/hpf. CT A/P demonstrated bilateral
obstructive uropathy with 7 mm calculus in the mid to distal right ureter and 4 mm calculus in the mid left ureter, bilateral hydronephrosis. Blood cultures x 2 were obtained, as well as urine culture. Was started on IV ceftriaxone empirically and
given Tylenol. He was evaluated by urology in the ED who recommended OR for ureteral stent placement today. On hospital day 1 patient had leukocytosis, possibly from instrumentation but patient's blood cultures grew gram-positive cocci in
clusters. ID was consulted and patient was started on empiric ceftriaxone and vancomycin. 1 of 2 bottles grew Staph epidermidis possibly contaminant, blood cultures were repeated, reached out to ID for recommendations. ID recommends empiric
treatment until sensitivities return.
#Sepsis secondary to infected ureterolithiasis.
#CT demonstrating bilateral obstructive uropathy.
# Recurrent right nephrolithiasis
# Leukocytosis
Passed stones in January and February 2025
Temp 102.5, HR >90, RR >20 meeting SIRS criteria, likely source are his stones
Tylenol ABX IV fluids in ED
- blood cultures positive for gram-positive cocci in clusters, 1 of 2 bottles grew Staph epidermidis possibly contaminant awaiting second bottle
- urine culture positive for staph species
-IV ceftriaxone, vancomycin
-ID consult, continue current empiric treatment
- Okay for discharge from urology standpoint
-Trend CBC
-Repeat blood culture no growth in 24 hours
- Awaiting sensitivities
#Postrenal NOAM with bilateral obstructive uropathy, improving Cr 1.3 today
Creatinine 2.1 on admission up from baseline near 0.8.
-trend BMP
-Avoid nephrotoxic agents
- Renally dose medications
# Essential HTN
- Continue atenolol with parameters
# Hyperlipidemia
Continue to monitor
DVT prophylaxis
SQ heparin
GI prophylaxis
Famotidine
CODE STATUS
Full code
Anticipated Discharge: Within 24 hours
Subjective/Interval History
-
Date of Service: April 17, 2025
Seen and examined at the bedside. No acute events reported overnight. AFVSS this morning
Urine culture finalized with Staph epidermidis that has ampicillin resistance though otherwise sensitive.
Patient denies any complaints. He states he feels well and is eager to leave the hospital
Objective Data
-
Labs:
Laboratory Results
04/17/25
08:09
WBC 7.7
Hgb 13.1
Hct 38.9 L
Plt Count 202
Sodium 142
Potassium 4.2
Chloride 110 H
Carbon Dioxide 24
BUN 26 H
Creatinine 1.3
Glucose 91
Calcium 8.6
Vital Signs:
Vital Signs
Temp Pulse Resp BP Pulse Ox
98.1 F 73 18 132/74 95
04/17/25 07:55 04/17/25 07:55 04/17/25 07:55 04/17/25 07:55 04/17/25 07:55
I&O
04/16/25 04/17/25 04/18/25
06:59 06:59 06:59
Intake Total 960 / 960 960 / 960
Output Total 2250 / 2250
Balance -1290 / -1290 960 / 960
Review of Systems
-
History Source: Patient
All other systems: Reviewed and negative
Physical Exam
-
General: Well Developed, Well Nourished, No Apparent Distress and Comfortable
HEENT: Normocephalic, Atraumatic and Moist Mucous Membranes
Respiratory: Clear to Auscultation and Non Labored Respirations
Cardiac: Regular Rhythm and S1/S2; Negative Murmur, Rub or Gallop
GI: Soft, Nontender, Nondistended and Normal Bowel Sounds
Musculoskeletal: No Clubbing, No Cyanosis and No Edema
Skin: Warm and Dry; Negative Rash
Neuro: AO x 3, Nonfocal/Grossly Intact and Central Nerve's Intact
Psych: Calm
Data Reviewed
-
Labs: Labs Reviewed by me, Discussed with Physician (Infectious disease) and Discussed with Patient
--- NOTE | 2025-04-17 10:35 | PHA.VAN.FU ---
Vancomycin Assessment / Plan
- Assessment
Renal Function: SCR Decreasing (Scr 2.1-->1.7-->1.4-->1.3)
WBC's are: WNL
In the past 24 hrs, patient has been: Afebrile
Concomitant Antimicrobials: Ceftriaxone
- Assessment - Therapeutic Drug Monitoring
Random Level: 11.8- drawn approx 20 hours after vanco 1250mg dose
- Dosing Plan
Adjust Regimen to: Will start vancomycin 1250mg IV q24h- to start now.
New Regimen Predicts: AUC (471), Peak (31.6), Trough (11)
Dosing Comments: Noted possible d/c today.
If renal function continues to improve then dose may need to be adjusted. Will continue to follow.
- Follow Up
Pharmacy will continue to follow.
Vancomycin Follow UP
- -
Patient Age: 74
Patient Sex: Male
Vancomycin Day #: 3
Indication: Bacteremia
Requesting Provider: Dr. Marquez (resident) / Dr. Shea
Pertinent Antimicrobial Allergies:
penicillins - unknown (as a child); tolerated cephalosporins
Height / Weight:
Height 5 ft 9 in
Actual Weight 83.915 kg
- Vital Signs / Lab Results
Temp Pulse Resp BP Pulse Ox
98.1 F 73 18 132/74 95
04/17/25 07:55 04/17/25 07:55 04/17/25 07:55 04/17/25 07:55 04/17/25 07:55
Lab Results - Hematology
04/15/25 04/16/25 04/17/25
05:22 07:05 08:09
WBC 15.2 H 9.8 7.7
Lab Results - Chemistry
04/15/25 04/16/25 04/17/25
05:22 07:05 08:09
BUN 35 H 31 H 26 H
Creatinine 1.7 H 1.4 H 1.3
Estimated Creat Clear 39 47 51
Microbiology Results
04/15/25 10:15 Blood Culture - Preliminary
Blood/Venous No Growth in 48 hours- Final report to follow
04/14/25 11:23 Blood Culture - Preliminary
Blood/Venous Coagulase neg. staphylococcus
Gram Stain - Preliminary
04/14/25 09:49 Blood Culture - Preliminary
Blood/Venous Staphylococcus epidermidis
Gram Stain - Preliminary
04/14/25 09:49 Urine Culture - Final
Urine Staphylococcus epidermidis
Therapeutic Drug Monitoring
Random Vancomycin 11.8 ug/ml 04/17/25 08:09
[2025-04-17] MEDS: VANCOCIN 275 MG IV (10:50)
--- NOTE | 2025-04-17 12:21 | W.PN.ID1 ---
Date of Service
Date of Service: April 17, 2025
Today's Communication
Continue antibiotics. See below�
Assessment / Plan
Obstructive uropathy secondary to bilateral ureteral stones.
- s/p bilateral ureteral stenting (04/13/2025
Complicated urinary tract infection
Bacteremia with staph epidermidis
- Given clinical presentation likely a true pathogen.
Leukocytosis
Hx HTN
Nephrolithiasis
Hx lymphoma (large B cell, 2010; in remission)
Recommendations:
Repeat blood cultures negative x 48 hours.
Sensitivities of recovered isolate reviewed.
At discharge, can transition to oral Keflex 500 mg QID, to continue until 04/29/25.
Patient will require outpatient follow-up with Urology.
����������������������������������������������������������
Chief Complaint
-: UTI and Bacteremia
Subjective / Review of Systems
Review of Systems: No Fever and No Chills
Vital Signs / Physical Exam
Vital Signs
Vital Signs
Temp Pulse Resp BP Pulse Ox
98.1 F 73 18 132/74 95
04/17/25 07:55 04/17/25 07:55 04/17/25 07:55 04/17/25 07:55 04/17/25 07:55
Physical Exam
Constitutional: No Acute Distress
Eyes: Sclera Anicteric
Cardiovascular: S1/S2; Negative S3/S4
Pulmonary: Clear; Negative Wheezes
Gastrointestinal: Soft and Non Tender
Genito-Urinary: Negative CVA Tenderness
Neurological: Awake and Alert
Psychological: Calm
Objective Data
Lab Data
Lab Results
04/17/25 08:09
04/17/25 08:09
Estimated Creat Clear 51 ml/min 04/17/25 08:09
Lactic Acid 1.1 mmol/L (0.7-2.0) 04/14/25 09:49
Total Bilirubin 1.7 mg/dl (0.2-1.3) H 04/14/25 09:49
AST 28 U/L (17-59) 04/14/25 09:49
ALT 18 U/L (0-50) 04/14/25 09:49
Alkaline Phosphatase 59 U/L (38-126) 04/14/25 09:49
Most recent labs reviewed.
Micro Results:
04/14/25 11:23 Blood Culture - Final
Blood/Venous Staphylococcus epidermidis
Gram Stain - Final
04/14/25 09:49 Blood Culture - Final
Blood/Venous Staphylococcus epidermidis
Gram Stain - Final
04/15/25 10:15 Blood Culture - Preliminary
Blood/Venous No Growth in 48 hours- Final report to follow
04/14/25 09:49 Urine Culture - Final
Urine Staphylococcus epidermidis
Blood Culture Final 04/14/25
Staphylococcus epidermidis
Organism 1 Staphylococcus epidermidis
1. Staphylococcus epidermidis
M.I.C. RX
--------- ---
Amoxicillin/Potas. Clavulanate <=4/2 S
Ampicillin <=2 R
Clindamycin <=0.5 S
Gentamicin <=4 S
Erythromycin <=0.5 S
Levofloxacin <=1 S
Oxacillin <=0.25 S
Tetracycline <=4 S
Trimethoprim/Sulfamethoxazole <=0.5/9.5 S
Vancomycin 2 S
Imaging:
04/14/2025 CT abdomen/pelvis without IV contrast: bilateral obstructive uropathy secondary to a 7 mm calculus in the mid to distal right ureter and a 4 mm calculus in the mid left ureter causing mild bilateral hydronephrosis. Bilateral
nephrolithiasis is noted. Please see full dictation for additional detail.
Care Review
Plan reviewed with: Physician (Hospitalist)
--- NOTE | 2025-04-17 12:44 | CM ---
Chart reviewed. Patient will d/c today
Transition to po abx per ID
Met w/ patient and spouse bedside, agreeable to d/c
IMM verbally reviewed, copy provided, copy on chart
Plan: Home, no needs
[2025-04-17 14:36] VITALS: BP 138/72
== END 2025-04-17 16:00 | disposition home or self-care (01) | DRG 854 ==
LOC: 4 WEST ACU 13:52
PROVIDERS: Physician Assistant; Student in an Organized Health Care Education/Training Program; ADMITTING PHYSICIAN Internal Medicine; CONSULT PHYSICIAN Internal Medicine Infectious Disease; CONSULT PHYSICIAN Specialist; EMERGENCY PHYSICIAN Emergency Medicine; FAMILY PHYSICIAN Family Medicine
PROC: 0T788DZ Dilation of Bilateral Ureters with Intraluminal Device, Via Natural or Artificial Opening Endoscopic (ICD-10-PCS; 2025-04-14)
DX: A41.1 Sepsis due to other specified staphylococcus (principal); C85.9A Non-Hodgkin lymphoma, unspecified, in remission; N17.9 Acute kidney failure, unspecified; N20.2 Calculus of kidney with calculus of ureter; N13.6 Pyonephrosis; I10 Essential (primary) hypertension; E78.00 Pure hypercholesterolemia, unspecified; Z87.442 Personal history of urinary calculi; Z87.891 Personal history of nicotine dependence; Z88.0 Allergy status to penicillin; Z91.041 Radiographic dye allergy status; Z90.49 Acquired absence of other specified parts of digestive tract
CPT/HCPCS: 74018; 74176; 76000; 80048; 80053; 80202; 81003; 81015; 83605; 83735; 85025; 85027; 87040; 87086; 87147; 87154; 87186; 87205; 96361; 96374; 99285; C1758; C2617

== ENCOUNTER 2025-05-18 06:15 | Day surgery (SDC) | payer OTHER, SELFPAY ==
[2025-05-04 14:13] VITALS: BMI 27.0
[2025-05-18] VITALS (8 sets, daily range): BP systolic 127–150; BP diastolic 71–85; BMI 27.0
[2025-05-18] MEDS: NORMOSOL-R/PLASMALYTE-A 1000 IV (09:34)
[2025-05-18 10:49] LABS: Urine Character Clear (Clear)
== END 2025-05-18 14:24 | disposition home or self-care (01) ==
LOC: SDS 06:15
PROVIDERS: ATTENDING PHYSICIAN Specialist; FAMILY PHYSICIAN Family Medicine
DX: N20.2 Calculus of kidney with calculus of ureter (principal)
CPT/HCPCS: 52356; 36415; 74018; 76000; 81003; 81015; 82365; 87086; 93005; C1894; C2617; J1580

== ENCOUNTER → 2025-06-30 15:06 | Outpatient (REF) | payer OTHER, SELFPAY | LOC: HWRAD 15:06 | PROVIDERS: ATTENDING PHYSICIAN Specialist; FAMILY PHYSICIAN Family Medicine | DX: N20.0 Calculus of kidney (principal) | CPT/HCPCS: 74018 ==